=== PATIENT | male | born 1935 | race Caucasian/White ===

== ENCOUNTER 2016-08-30 08:30 | Day surgery (SDC) | payer OTHER ==
--- NOTE | 2016-08-23 08:51 | HP ---
DATE OF ADMISSION: 08/30/2016 DATE OF DICTATION: 06/22/2016 Patient is to be admitted to the [facility] in the near future, date to be determined. HISTORY: This is an 81-year-old man who apparently has had a bilateral laparoscopic inguinal hernia surgery several years ago. He has gone on to develop significant recurrence at the level of the left groin. He presents now for open repair of recurrent left inguinal hernia with mesh. He denies GI, , or respiratory problems to suggest predisposition of hernia formation. Patient denies any significant past medical history, but does take amlodipine/ benazepril 5/10mg and atorvastatin 10mg, which is prescribed by his PMD, Dr. Alonso Goodwin. PAST SURGICAL HISTORY: Nil apart from his bilateral laparoscopic inguinal hernia surgery. ALLERGIES: None known. CURRENT MEDICATIONS: Atorvastatin 10 mg daily, amlodipine/benazepril 5/10mg daily. SOCIAL HISTORY: Negative for tobacco, negative for alcohol. FAMILY HISTORY: Nil. REVIEW OF SYSTEMS: Nil. PHYSICAL EXAMINATION: Patient was examined in the erect and supine position. There was an obvious large left inguinal hernia which is reducible in the supine position. The right groin is intact with no recurrence. The testes are bilaterally atrophic, but with no masses. IMPRESSION: Recurrent left reducible inguinal hernia status post bilateral laparoscopic inguinal hernia repair with mesh several years ago. PLAN: Open repair of recurrent reducible left inguinal hernia with mesh. Indications, alternatives, possible complications were reviewed. Consent obtained. Patient is to be seen preoperatively by Dr. Alonso Goodwin. Please refer to his notes for those medical details. Callie [id number] cc: ALONSO GOODWIN MD [facility]
[2016-08-29 15:53] VITALS: BMI 25.9
[2016-08-30] MEDS ORDERED: TAMSULOSIN HCL 0.4 MG CAP.ER.24H (FP) PO ONE (08:58)
[2016-08-30] MEDS ORDERED: ceFAZolin SODIUM 1 GM VIAL IVPB ONE (10:59)
[2016-08-30] MEDS ORDERED: ONDANSETRON 4 MG/2 ML VIAL IVPUSH PRN (12:29)
[2016-08-30] MEDS ORDERED: oxyCODONE HCL 5 MG TABLET PO PRN (12:29)
[2016-08-30] MEDS ORDERED: LACTATED RINGERS SOLUTION 1,000 ML IV SCH (12:30)
[2016-08-30 13:44] VITALS: TEMP 98.8
[2016-08-30] MEDS ORDERED: oxyCODONE HCL 5 MG TABLET PO ONE (14:50)
[2016-08-30 17:51] VITALS: BP 112/60; PULSE 86
--- NOTE | 2016-08-31 12:05 | OP ---
DATE OF OPERATION: 08/30/2016 PREOPERATIVE DIAGNOSIS: Recurrent left inguinal hernia. POSTOPERATIVE DIAGNOSIS: Recurrent left inguinal hernia. PROCEDURE: Repair of recurrent left inguinal hernia with mesh/intermediate wound closure (8 cm). OPERATING SURGEON: Jaison Juares MD DEVELOPMENT TECHNICIAN: Fernandez Reis MD ANESTHESIA: Rose Hinkle MD (general) HISTORY: This is an 81-year-old man who had undergone a previous bilateral laparoscopic inguinal hernia repair in 2006. He went on to develop recurrence on the left side, which has continued to increase in size. He presents now for repair of recurrent left inguinal hernia with mesh. Indications, alternatives, and possible complications were reviewed. Consent obtained. DESCRIPTION OF PROCEDURE: With the patient in the supine position and after general anesthesia, the left groin was prepped and draped in usual sterile fashion using chlorhexidine. An 8-cm left groin incision was made between the left pubic tubercle and the left anterior iliac spine. Incision was deepened through the skin into the subcutaneous space. The subcutaneous tissues were divided. Vessel sites identified in the subcutaneous space were clamped, divided, and ligated. The external oblique aponeurosis was reached. The external oblique aponeurosis was opened in the direction of its fibers through the external ring. There was significant scarring in the subexternal oblique region secondary to a prior intervention. Ultimately, the cord was swept clean from the level of the undersurface of the external oblique aponeurosis. At the pubic tubercle, Mindi drain was placed around the cord structures. The ilioinguinal nerve was identified amidst the scar tissue from the previous procedure. The cord was then skeletonized of its cremasteric fibers. Exploration of the cord revealed a large indirect component. The indirect component was mobilized to the level of the preperitoneal fat and inferior epigastric vessels. Closer attention identified also a component coming through the transversalis fascia with the hernia then being identified as a rather large pantaloon hernia. The hernia was then entirely reduced, both components were entirely reduced. The transversalis fascia was opened throughout its entire length. The preperitoneal tissues were further reduced. Davol plug was placed in the preperitoneal space and fanned out under the musculature. It was tacked circumferentially with 2-0 Prolene sutures. Ultimately, the attenuated transversalis fascia was imbricated in 2 layers over the Davol plug, reconstituting the internal ring to permit only fingertip entrance. An overlay patch was then fashioned about the entire inguinal floor and tacked circumferentially with 2-0 Prolene sutures. It was keyholed superiorly, where it was wrapped around the cord, buttressing the internal ring. The cord was then returned to its anatomic position. The overlying external oblique aponeurosis was closed in a continuous fashion using 3-0 Vicryl suture material. After irrigation and hemostasis, the wound was closed in layers. Maximo fascia was approximated using interrupted 3-0 chromic suture. Subcuticular layer was approximated with interrupted 4-0 Biosyn. Skins were closed using 4-0 Biosyn in subcuticular stitch in continuous fashion. Prior to complete closure of the wound, 10 mL of 0.5% Marcaine was freely instilled in the wound. NEEDLE AND INSTRUMENT COUNT: Correct. ESTIMATED BLOOD LOSS: Minimal. SPECIMENS: None. DRAINS: None. IMPLANTS: A Bard plug patch. Patient tolerated the procedure. The procedure was terminated. Callie [id number] cc: Alonso Hampton MD MTDD
== END 2016-08-30 16:30 | disposition home or self-care (01) ==
LOC: JASU-SURG 08:30
PROVIDERS: ATTEND Surgery
PROC: 0YU60JZ Supplement Left Inguinal Region with Synthetic Substitute, Open Approach (ICD-10-PCS; principal; 2016-08-30 10:00)
DX: K40.91 Unilateral inguinal hernia, without obstruction or gangrene, recurrent (principal)
CPT/HCPCS: 94760

== ENCOUNTER 2020-06-07 06:59 | Inpatient (IN) | payer OTHER ==
[2020-06-07 07:08] VITALS: BMI 25.1
[2020-06-07] MEDS ORDERED: MECLIZINE HCL 25 MG TABLET (FP) PO STA (07:36)
--- OUTSIDE RECORDS SUMMARY | 2020-06-07 07:40 | XMS ---
:1935 Author Organization [facility] Support Name Relationship Address Phone RE Unavailable Unavailable Unavailable MASOOD MILLER DAUGHTER [address] [place] [address] SHAYY SIMPSON [address] [place] [address] Re-disclosure Warning The records that you are about to access may contain information from federally- assisted alcohol or drug abuse programs. If such information is present, then the following federally mandated warning applies: This information has been disclosed to you from records protected by federal confidentiality rules (42 CFR part 2). The federal rules prohibit you from making any further disclosure of this information unless further disclosure is expressly permitted by the written consent of the person to whom it pertains or as otherwise permitted by 42 CFR part 2. A general authorization for the release of medical or other information is NOT sufficient for this purpose. The Federal rules restrict any use of the information to criminally investigate or prosecute any alcohol or drug abuse patient.The records that you are about to access may contain highly sensitive health information, the redisclosure of which is protected by Article 27-F of the [facility] Public Health law. If you continue you may haveaccess to information: Regarding HIV / AIDS; Provided by facilities licensed or operated by the [facility] Office of Mental Health; or Provided by the [facility] Office for People With Developmental Disabilities. If such information is present, then the following [facility] mandated warning applies: This information has been disclosed to you from confidential records which are protected by state law. State law prohibits you from making any further disclosure of this information without the specific written consent of the person to whom it pertains, or as otherwise permitted by law. Any unauthorized further disclosure in violation of state law may result in a fine or shelter sentence or both. A general authorization for the release of medical or other information is NOT sufficient authorization for further disclosure. Insurance Providers Payer name Policy type Policy ID Covered Covered democrat's Policy P veronica / Coverage democrat ID relationship to [employer] ormation type sawyer LOCAL [id number] - [id number] [facility] [id number] [facility]
[2020-06-07] MEDS ORDERED: MECLIZINE HCL 25 MG TABLET (FP) ONE (07:53)
--- NOTE | 2020-06-07 08:01 | PDOC ---
History of Present Illness - General Chief Complaint: Nausea/Vomiting Stated Complaint: DIZZY, VOMITING Time Seen by Provider: 06/07/20 07:08 - History of Present Illness Initial Comments: Patient speaks Dominican, history obtained from daughter at bedside: 85yo M with PMHx of HTN, HLD, angioplasty of the heart, R corneal transplant who presents with new-onset dizziness and vomiting. Symptoms started this morning at around 5am when the patient woke up from dreaming about his . Symptoms get worse with movement and resolve with rest. Due to the severity, the patient's called the daughter and brought him into the ED. Patient has never had these symptoms before, and is a relatively healthy person at baseline - still drives and walks everyday. Patient is not experiencing any associated symptoms but has a mild tremor which is not normal for him. NIHSS 0. VS when patient was seen: BP 121/65, P 83, O2 sat 98% breathing comfortably on RA. Home meds: - Furosemide 20 daily - Atorvastatin 10 daily - Amlodipine-Benazepril 5-10 daily - ASA [address] Hampton NIH Stroke Scale - Last Known Well Date/Time & Onset Date Last Known Well: 06/06/20 - Initial Evaluation Level of consciousness: Alert Ask patient the month and their age: Answers both correctly Ask patient to open & close eyes; make fist and let go: Obeys both correctly Best gaze (horizontal eye movement): Normal Visual field testing: No visual field loss Facial paresis (Show teeth/raise eyebrows/close eyes tight): Normal symmetrical movement Motor Function: Left Arm: Normal Motor Function: Right Arm: Normal (extends arm 90 (or 45) degrees for 10 seconds without drift Motor Function: Left Leg: Normal (extends leg 30 degrees for 5 seconds without drift) Motor Function: Right Leg: Normal (extends leg 30 degrees for 5 seconds without drift) Limb Ataxia: No ataxia Sensory(Use pinprick test arms,legs,trunk,face/side to side): Normal Best language (Describe picture, name items, read sentences): No Aphasia Dysarthria (read several words): Normal articulation Extinction and Inattention: No abnormality - Total Score NIH Stroke Scale Score: 0 Past History - Medical History Allergies/Adverse Reactions: Allergies Allergy/AdvReac Type Severity Reaction Status Date / Time No Known Drug Allergies Allergy Verified 06/07/20 07:08 Home Medications: Ambulatory Orders Ascorbate Calcium [Vitamin C] 500 mg PO DAILY 08/29/16 Aspirin [Aspirin EC] 81 mg PO DAILY 08/29/16 Atorvastatin Ca [Lipitor] 10 mg PO DAILY 08/29/16 Amlodipine Besylate/Benazepril [Amlodipine-Benazepril 5-10 mg] 1 tab PO DAILY 06/07/20 Furosemide [Lasix] 20 mg PO DAILY 06/07/20 Anemia: No Asthma: No Cancer: No Cardiac Disorders: Yes (ASHD) CVA: No COPD: No CHF: No Dementia: No Diabetes: No GI Disorders: No Disorders: No HTN: Yes Hypercholesterolemia: Yes Liver Disease: No Seizures: No Thyroid Disease: No - Surgical History Abdominal Surgery: Yes (BILAT LAP INGUINAL HERNIA REPAIR) Cardiac Surgery: Yes - Psycho-Social/Smoking History Smoking History: Never smoked Information on smoking cessation initiated: No - Substance Abuse Hx (Audit-C & DAST Scrn) How often the patient has a drink containing alcohol: Monthly or less Score: In Men: 4 or > Positive; In Women: 3 or > Positive: 1 Screen Result (Pos requires Nsg. Audit-10AR): Negative In the last yr the pt used illegal drug/Rx for NonMed reason: No Score: Yes response is considered Positive: 0 Screen Result (Positive result requires Nsg. DAST-10): Negative Review of Systems - Review of Systems Comments:: Constitutional: denied fevers, chills, diaphoresis, changes in appetite/PO intake, weight gain/loss HEENTM: denied headaches, changes in vision/hearing/tasting/smelling, runny nose, sore throat Respiratory: denied SOB, CP Cardiac: endorsed dizziness, denied palpitations, syncope Abdomen/GI: endorsed vomiting, denied pain, diarrhea, constipation : denied dysuria, urinary frequency/urgency MSK: denied back pain, joint pain/swelling/stiffness Neurological: endorsed dizziness, denied numbness, tingling, weakness *Physical Exam - Vital Signs Last Vital Signs Temp Pulse Resp BP Pulse Ox 97.6 F 84 20 154/71 96 06/07/20 07:02 06/07/20 07:02 06/07/20 07:02 06/07/20 07:02 06/07/20 07:08 - Physical Exam GENERAL: Dominican male, appears younger than stated age, thin body habitus, AAOx4 showing signs of acute distressdue to vomiting HEAD: Normal with no signs of trauma, good dentitionfor age EYES: pupils round but unequal (R eye corneal transplant), extraocular movements intact bilaterally EARS, NOSE, THROAT: dry mucous membranes NECK: No lymphadenopathy, JVD masses noted LUNGS: CTAB. No wheezes, and no crackles. No accessory muscle use HEART: RRR, normal S1 and S2 without murmur ABDOMEN: Soft, nontender, not distended/protuberant, normoactive bowel sounds EXTREMITIES: 2+ radial and dorsalis pedis pulses, warm to touch bilaterally, nontender to palpation, no peripheral edema appreciated, no active lesions or ulcers noted on feet bilaterally including interdigital web spaces NEUROLOGICAL: Cranial nerves II-XII grossly intact. Normal speech with symmetricalfacial movements. Sensation intact bilaterally PSYCHIATRIC: Cooperative and interactive, responds appropriately. Limited eye contact. Appropriate affect SKIN: Warm, no rashes or lesions noted, large seborrheic keratosis on back ED Treatment Course - LABORATORY CBC & Chemistry Diagram: 06/07/20 07:34 06/07/20 07:34 - RADIOLOGY Radiology Studies Ordered: Category Date Time Status HEAD CT (STROKE) [CT] Stat CT Scan 06/07/20 07:35 Taken Medical Decision Making - Medical Decision Making 85yo M with PMHx of HTN, HLD, angioplasty of the heart, R corneal transplant who presents with new-onset dizziness and vomiting. - CBC - CMP - EKG - meclizine - ativan - heat CT - neuro consult > heat CT unremarkable - awaiting brain MRI > will admit for intractable vertigo and ruling out CVA > spoke to Dr. Marmolejo 9:30am - did not recommend any further management at this time > Dr. Wells spoke to Dr. Hampton to inform him about his patient's admission Discharge - Discharge Information Problems reviewed: Yes Clinical Impression/Diagnosis: Vertigo Condition: Fair - Admission Yes - Follow up/Referral - Patient Discharge Instructions - Post Discharge Activity
[2020-06-07 08:04] LABS: BASO % 0.5 % (0-2.0); EOS % 0.2 % (0-4.5); HEMATOCRIT 41.1 % (35.4-49); HEMOGLOBIN 13.5 GM/dL (11.7-16.9); LYMPH % 16.6 % (8-40); MCH 31.8 pg (25.7-33.7); MCHC 32.9 g/dl (32.0-35.9); MEAN CELL VOLUME 96.6 fl (80-96); MEAN PLT VOLUME 12.5 fl (7.5-11.1); MONO % 1.9 % (3.8-10.2); NEUT % 80.8 % (42.8-82.8); PLATELET COUNT 125 K/MM3 (134-434); RBC 4.25 M/mm3 (4.00-5.60); RDW 12.8 % (11.9-15.9); WHITE BLOOD COUNT 5.9 K/mm3 (4.0-10.0)
[2020-06-07 08:13] LABS: CHLORIDE 104 mmol/L (98-107); POTASSIUM 4.5 mmol/L (3.5-5.1); SODIUM 138 mmol/L (136-145)
[2020-06-07 08:15] LABS: ALBUMIN 3.9 g/dl (3.4-5.0); CALCIUM 9.4 mg/dL (8.5-10.1)
[2020-06-07 08:16] LABS: ANION GAP 5 MMOL/L (8-16); BLOOD UREA NITROGEN 16.7 mg/dL (7-18); CO2 28 mmol/L (21-32); GLUCOSE,RANDOM 144 mg/dL (74-106)
[2020-06-07 08:19] LABS: CREATININE 0.8 mg/dL (0.55-1.3); SGOT/AST 20 U/L (15-37); SGPT/ALT 21 U/L (13-61)
[2020-06-07 08:20] LABS: BILIRUBIN,TOTAL 0.6 mg/dL (0.2-1); TOT PROT 7.6 g/dl (6.4-8.2)
[2020-06-07 08:22] LABS: ALK PHOS 61 U/L (45-117)
[2020-06-07] MEDS ORDERED: LORazepam 2 MG/ML SDV VIAL ONE (08:23)
--- NOTE | 2020-06-07 08:39 | PDOC ---
Attending Attestation - Resident Resident Name: Thelma Brown - ED Attending Attestation I have performed the following: I have examined & evaluated the patient, The case was reviewed & discussed with the resident, I agree w/resident's findings & plan, Exceptions are as noted - HPI HPI: 06/07/20 08:30 85 years old CAD, hypertension, high cholesterol on Plavix presents to the ED with vertigo upon waking up this morning. Last seen normal last night. Upon awakening with change in position severe vertigo associated with nausea vomiting unable to sit up very symptomatic denies chest pain shortness of breath - Physicial Exam PE: 06/07/20 08:31 Vitals: Triage Vital signs reviewed General Appearance: No acute distress, well nourished well developed, Head: Atraumatic, Eyes: Pupils equal reactive round, extraocular movement intact Cardiac: Regular rate and rhythym, no murmurs, no rubs, no gallops, Lungs: Clear to auscultation bilateral, good air movement bilaterally, Abdomen: Soft, non distended, normal bowel sounds, non tender to palpation Extremities: Full range of motion to all extremities, no cyanosis, clubbing, or edema Skin: Warm and dry, no rashes or lesions, no rash, no petechiae Neuro: AOX3; cranial Nerves 2-12 grossly intact, strength intact to all extremities, sensation intact to all extremities, Severe vertigo with mild change in head position, Normal [id number] Psych: Normal mood, normal affect - Medical Decision Making 06/11/20 16:48 Severe vertigo intractable head CT negative Despite IV medications patient still unable to change position without moderate to severe room spinning We will admit to medicine for neurology consultation medication IV hydration MRI and further management. Heart Score/ECG Review - ECG Impressions Comment:: 06/07/20 08:38 EKG performed at 744 demonstrates normal sinus rhythm left anterior fascicular block No ST elevations or T wave inversions Interpreted by me. Discharge - Discharge Information Problems reviewed: Yes Clinical Impression/Diagnosis: Vertigo Condition: Stable Disposition: HOME - Follow up/Referral - Patient Discharge Instructions - Post Discharge Activity
[2020-06-07 09:04] LABS: URINE APPEARANCE TURBID; URINE BILIRUBIN NEGATIVE (NEGATIVE); URINE COLOR YELLOW; URINE GLUCOSE (UA) NEGATIVE (NEGATIVE); URINE KETONE NEGATIVE (NEGATIVE); URINE LEUK ESTERASE NEGATIVE (NEGATIVE); URINE NITRITE NEGATIVE (NEGATIVE); URINE PROTEIN NEGATIVE (NEGATIVE)
[2020-06-07] MEDS ORDERED: ASPIRIN COATED 81 MG TABLET.EC ONE (11:01)
[2020-06-07] MEDS ORDERED: ATORVASTATIN CA 10 MG TABLET (FP) ONE (11:01)
[2020-06-07 11:02] LABS: CHOLESTEROL 139 mg/dL (50-200)
[2020-06-07 11:04] LABS: LDL CHOLESTEROL (ONLY SJRH) 75 mg/dL (5-100); TRIGLYCERIDES 37 mg/dL (0-150)
[2020-06-07 11:05] LABS: HDL CHOLESTEROL 58 mg/dL (40-60)
[2020-06-07] MEDS: ATORVASTATIN CA 10 MG TABLET (FP) PO SCH (11:09)
[2020-06-07] MEDS: ASPIRIN COATED 81 MG TABLET.EC PO SCH (11:09)
--- NOTE | 2020-06-07 11:13 | HP ---
CHIEF COMPLAINT: dizziness PCP: Dr. Hampton HISTORY OF PRESENT ILLNESS: Patient is an 85 year old male with past medical history of HTN, HLD, CAD, was brought in by EMS due to dizziness accompanied by nausea and vomiting for 1 day. Patient is Greek-speaking, daughter at bedside to aide with the history. She reported that patient was having a dream around 1am today when he suddenly woke up with dizziness. His called his daughter to let her know, but patient was able to go back to sleep. At around 5am, patient woke up dizzy, describing as room spinning around him, and as soon as he stood up, started having nausea and vomiting. Patient was able to get back to bed, and his called the daughter again and EMS was called. Upon arrival at the ED, patient still reported dizziness, worse with changes in position, improved with rest. He received Ativan and Meclizine and reported some mild relief. Denies any recent illness or sick contacts. Denies any hearing loss or tinnitus, denies weakness, numbness or tingling. Denies fevers, chills, headache, chest pain, palpitations, shortness of breath, abdominal, diarrhea, urinary symptoms. ER course was notable for: (1)Head CT - moderate atrophy without gross evidence of an acute infarct. (2) (3) Recent Travel: denies PAST MEDICAL HISTORY: HTN HLD CAD s/p cath, although no reported history of cardiac stents (follows up with Dr. Hardy) PAST SURGICAL HISTORY: PCI Right corneal transplant Hernia repair Social History: Smoking:denies Alcohol:1 glass of wine a day Drugs: denies Lives with at home Allergies No Known Drug Allergies Allergy (Verified 06/07/20 07:08) HOME MEDICATIONS: Home Medications Medication Instructions Recorded Ascorbate Calcium [Vitamin C] 500 mg PO DAILY 08/29/16 Aspirin [Aspirin EC] 81 mg PO DAILY 08/29/16 Atorvastatin Ca [Lipitor] 10 mg PO DAILY 08/29/16 Amlodipine Besylate/Benazepril 1 tab PO DAILY 06/07/20 [Amlodipine-Benazepril 5-10 mg] Furosemide [Lasix] 20 mg PO DAILY 06/07/20 REVIEW OF SYSTEMS CONSTITUTIONAL: Absent: fever, chills, diaphoresis, generalized weakness, malaise, loss of appetite, weight change HEENT: Absent: rhinorrhea, nasal congestion, throat pain, throat swelling, difficulty swallowing, mouth swelling, ear pain, eye pain, visual changes CARDIOVASCULAR: Absent: chest pain, syncope, palpitations, irregular heart rate, lightheadedness, peripheral edema RESPIRATORY: Absent: cough, shortness of breath, dyspnea with exertion, orthopnea, wheezing, stridor, hemoptysis GASTROINTESTINAL:nausea, vomiting Absent: abdominal pain, abdominal distension, diarrhea, constipation, melena, hematochezia GENITOURINARY: Absent: dysuria, frequency, urgency, hesitancy, hematuria, flank pain, genital pain MUSCULOSKELETAL: Absent: myalgia, arthralgia, joint swelling, back pain, neck pain SKIN: Absent: rash, itching, pallor HEMATOLOGIC/IMMUNOLOGIC: Absent: easy bleeding, easy bruising, lymphadenopathy, frequent infections ENDOCRINE: Absent: unexplained weight gain, unexplained weight loss, heat intolerance, cold intolerance NEUROLOGIC: dizziness Absent: headache, focal weakness or paresthesias,unsteady gait, seizure, mental status changes, bladder or bowel incontinence PSYCHIATRIC: Absent: anxiety, depression, suicidal or homicidal ideation, hallucinations. PHYSICAL EXAMINATION Vital Signs - 24 hr 06/07/20 06/07/20 07:02 07:08 Temperature 97.6 F Pulse Rate 84 Respiratory 20 Rate Blood Pressure 154/71 O2 Sat by Pulse 95 96 Oximetry (%) Orthostatics: lying down BP 127/61 HR 72, sitting BP 126/65 HR 75 GENERAL: Awake, alert, and fully oriented, in no acute distress. HEAD: Normal with no signs of trauma. EYES: PERRLA, EOMI, sclera anicteric, conjunctiva clear. EARS, NOSE, THROAT: Moist mucous membranes. NECK: Normal range of motion, supple LUNGS: Breath sounds equal, clear to auscultation bilaterally. HEART: Regular rate and rhythm, normal S1 and S2 without murmur ABDOMEN: Soft, nontender, not distended, normoactive bowel sounds MUSCULOSKELETAL: Normal range of motion at all joints. LOWER EXTREMITIES: 2+ pulses, warm, well-perfused. No peripheral edema. NEUROLOGICAL: Cranial nerves II-XII grossly intact. Normal speech. Motor strength 5/5, sensation intact. No dysmetria. Unable to test gait as patient feels very dizzy when standing up PSYCHIATRIC: Cooperative. Good eye contact. Appropriate mood and affect. SKIN: Warm, dry, normal turgor, no rashes or lesions noted, normal capillary refill. Laboratory Results - last 24 hr 06/07/20 06/07/20 06/07/20 07:34 07:34 08:37 WBC 5.9 RBC 4.25 Hgb 13.5 Hct 41.1 MCV 96.6 H MCH 31.8 MCHC 32.9 RDW 12.8 Plt Count 125 L MPV 12.5 H Absolute Neuts (auto) 4.8 Neutrophils % 80.8 Lymphocytes % 16.6 Monocytes % 1.9 L Eosinophils % 0.2 Basophils % 0.5 Nucleated RBC % 0 Sodium 138 Potassium 4.5 Chloride 104 Carbon Dioxide 28 Anion Gap 5 L BUN 16.7 Creatinine 0.8 Est GFR (CKD-EPI)AfAm 95.07 Est GFR (CKD-EPI)NonAf 82.03 Random Glucose 144 H Calcium 9.4 Total Bilirubin 0.6 AST 20 ALT 21 Alkaline Phosphatase 61 Troponin I < 0.02 Total Protein 7.6 Albumin 3.9 Urine Color Yellow Urine Appearance Turbid Urine pH 8.0 Ur Specific [place] 1.014 Urine Protein Negative Urine Glucose (UA) Negative Urine Ketones Negative Urine Blood Negative Urine Nitrite Negative Urine Bilirubin Negative Urine Urobilinogen 1.0 Ur Leukocyte Esterase Negative ASSESSMENT/PLAN: Patient is an 85 year old male with past medical history of HTN, HLD, CAD, was brought in by EMS due to dizziness accompanied by nausea and vomiting for 1 day. #Dizziness likely 2/2 BPPV -r/o TIA/CVA, although unlikely as patient has no other symptoms, and symptoms improved with Meclizine -Orthostatics negative -Head CT - no acute intracranial pathology -continue Meclizine prn -continue ASA and statin -Brain MRI ordered -Echo and carotid doppler -tele monitoring -physical therapy -Neuro (Dr. Marmolejo) consulted. Recs appreciated. #HTN -BP stable, will continue to monitor -hold bp meds for now for permissive HTN #HLD -continue Lipitor #FEN -Not on any standing fluids -Electrolytes wnl, routine bmp monitoring -Clear liquid diet, advance as tolerated #Prophylaxis -Lovenox 40mg sq daily #Disposition -full code -admit to tele Family Medical History Family History: As Documented Visit type - Medication Review Med list reviewed for High Risk Meds patients 65 and older: Yes - Emergency Visit Emergency Visit: Yes ED Registration Date: 06/07/20 Care time: The patient presented to the Emergency Department on the above date and was hospitalized for further evaluation of their emergent condition. - New Patient This patient is new to me today: Yes Date on this admission: 06/08/20 - Critical Care Critical Care patient: No ATTENDING PHYSICIAN STATEMENT I saw and evaluated the patient. I reviewed the resident's note and discussed the case with the resident. I agree with the resident's findings and plan as documented. SUBJECTIVE: OBJECTIVE: ASSESSMENT AND PLAN:
--- OUTSIDE RECORDS SUMMARY | 2020-06-07 11:39 | XMS ---
:1935 Author Organization [facility] Support Name Relationship Address Phone RE, RETIRED Unavailable Unavailable Unavailable RE Unavailable Unavailable Unavailable MASOOD MILLER DAUGHTER [address] [place] [address] SHAYY SIMPSON [address] [place] [address] Re-disclosure Warning The records that you are [...] is protected by Article 27-F of the [facility] Public Health law. If you continue you may haveaccess to information: Regarding HIV / AIDS; Provided by facilities licensed or operated by the [facility] Office of Mental Health; or Provided by the [facility] Office for People With Developmental Disabilities. If such information is present, then the following [facility] mandated warning applies: This information has [...] law may result in a fine or custodial sentence or both. A general authorization for the release of medical or other information is NOT sufficient authorization for further disclosure. Insurance Providers Payer name Policy type Policy ID Covered Covered democrat's Policy P veronica / Coverage democrat ID relationship to Sawyer Inf ormation type sawyer AETNA MEDICARE [id number] MEBRL [id number] [facility] [id number] [facility] [id number] [facility]
[2020-06-07] MEDS ORDERED: MECLIZINE HCL 25 MG TABLET (FP) PO PRN (11:45)
--- NOTE | 2020-06-07 13:14 | PN ---
Teaching Attending Note Name of Resident: Chrissie Farnsworth ATTENDING PHYSICIAN STATEMENT I saw and evaluated the patient. I reviewed the resident's note and discussed the case with the resident. I agree with the resident's findings and plan as documented. SUBJECTIVE: Patient seen and examined at bedside, admitted to r/o CVA for dizziness, improved w/ Meclizine x1 dose, awaiting MRI brain. VSS. OBJECTIVE: GA comfortable, NAD HEENT NC/AT, EOMI, neck supple, no focal deficits Chest CTAB CVS S1, S2+< RRR Abd Soft, NT, ND, BS+ Ext no LE edema, movezs all 4 ext. Neuro Cn 2-12 grossly intact, [place] hallpike maneuver exacerbates dizziness w/ minimal torsional nystagmus Microbiology 06/07/20 08:37 Urine - Urine Clean Catch Urine Culture - Final Lactose Fermenting Neg Bacilli Vital Signs (72 hours) 06/07/20 06/07/20 06/07/20 07:02 07:08 12:00 Temperature 97.6 F 98.1 F Pulse Rate 84 Pulse Rate [ 70 Left Radial] Respiratory 20 16 Rate Blood Pressure 154/71 Blood Pressure 126/65 [Left Arm] O2 Sat by Pulse 95 96 96 Oximetry (%) 06/07/20 06/07/20 06/07/20 16:00 17:54 19:30 Temperature 98.2 F 100.2 F H Pulse Rate 75 Pulse Rate [ 94 H 78 Left Radial] Respiratory 16 16 18 Rate Blood Pressure 130/72 Blood Pressure 130/67 122/64 [Left Arm] O2 Sat by Pulse 94 L 94 L 96 Oximetry (%) 06/07/20 06/07/20 06/08/20 22:36 23:00 05:22 Temperature 98.9 F 98.0 F 98 F Pulse Rate 77 64 Pulse Rate [ 87 Left Radial] Respiratory 20 18 18 Rate Blood Pressure 136/75 137/71 Blood Pressure 140/77 [Left Arm] O2 Sat by Pulse 98 95 Oximetry (%) 06/08/20 07:00 Temperature Pulse Rate Pulse Rate [ Left Radial] Respiratory Rate Blood Pressure Blood Pressure [Left Arm] O2 Sat by Pulse 95 Oximetry (%) Laboratory Results - last 24 hr 06/07/20 06/08/20 06/08/20 11:10 06:10 06:10 WBC RBC Hgb Hct MCV MCH MCHC RDW Plt Count MPV Absolute Neuts (auto) Neutrophils % Lymphocytes % Monocytes % Eosinophils % Basophils % Nucleated RBC % ESR 8 Sodium 138 Potassium 3.9 Chloride 104 Carbon Dioxide 29 Anion Gap 5 L BUN 14.8 Creatinine 0.7 Est GFR (CKD-EPI)AfAm 100.44 Est GFR (CKD-EPI)NonAf 86.66 Random Glucose 94 Hemoglobin A1c % Calcium 8.9 Phosphorus 3.8 Magnesium 2.1 Total Bilirubin 0.7 AST 15 ALT 18 Alkaline Phosphatase 56 C-Reactive Protein < 0.3 Total Protein 6.6 Albumin 3.3 L Vitamin B12 1439 H TSH 1.23 COVID-19 (LASHAY) Not detected 06/08/20 06/08/20 06:10 06:10 WBC 7.2 RBC 3.98 L Hgb 12.8 Hct 38.4 MCV 96.4 H MCH 32.1 MCHC 33.3 RDW 13.4 Plt Count 120 L MPV 12.0 H Absolute Neuts (auto) 4.9 Neutrophils % 68.2 Lymphocytes % 25.0 D Monocytes % 5.2 D Eosinophils % 0.9 D Basophils % 0.7 Nucleated RBC % 0 ESR Sodium Potassium Chloride Carbon Dioxide Anion Gap BUN Creatinine Est GFR (CKD-EPI)AfAm Est GFR (CKD-EPI)NonAf Random Glucose Hemoglobin A1c % 4.8 Calcium Phosphorus Magnesium Total Bilirubin AST ALT Alkaline Phosphatase C-Reactive Protein Total Protein Albumin Vitamin B12 TSH COVID-19 (LASHAY) Home Medications Medication Instructions Recorded Ascorbate Calcium [Vitamin C] 500 mg PO DAILY 08/29/16 Aspirin [Aspirin EC] 81 mg PO DAILY 08/29/16 Atorvastatin Ca [Lipitor] 10 mg PO DAILY 08/29/16 Amlodipine Besylate/Benazepril 1 tab PO DAILY 06/07/20 [Amlodipine-Benazepril 5-10 mg] Furosemide [Lasix] 20 mg PO DAILY 06/07/20 Meclizine HCl [Antivert -] 25 mg PO TID PRN #30 tablet 06/08/20 Current Medications Generic Name Dose Route Start Last Admin Trade Name Freq PRN Reason Stop Dose Admin Ascorbic Acid 500 mg 06/08/20 10:00 06/08/20 09:18 Vitamin C - PO 500 mg DAILY RICHARD Administration Aspirin 81 mg 06/07/20 10:00 06/08/20 09:18 Ecotrin - PO 81 mg DAILY RICHARD Administration Atorvastatin Calcium 10 mg 06/07/20 10:30 06/08/20 09:18 Lipitor - PO 10 mg DAILY RICHARD Administration Enoxaparin Sodium 40 mg 06/08/20 10:00 06/08/20 09:19 Lovenox - SQ 40 mg DAILY RICHARD Administration Meclizine HCl 25 mg 06/07/20 11:45 06/08/20 09:18 Antivert - PO 25 mg TID PRN Administration VERTIGO ASSESSMENT AND PLAN: 85 M BPPV r/o cerebellar CVA HTn HLD HFpEF Plan: Cont. Meclizine q4-6H PRN for dizziness Echo/Carotids/Brain MRI A1c/lipids/TSH Low salt diet, Andrea ness if possible PT evaluation for gait/transfer DVT ppx: Lovenox SC
--- NOTE | 2020-06-07 13:58 | ECHO ---
Name: SHAD SIMPSON Exam:Adult Echocardiogram Study Date: 06/07/2020 11:37 AM Age: 85 yrs Reason For Study: LV Function Height: 69 in Weight: 170 lb BSA: 1.9 m2 MMode/2D Measurements & Calculations IVSd: 1.1 cm Ao root diam: 3.1 cm LVIDd: 5.1 cm LA dimension: 3.3 cm LVIDs: 3.3 cm LVPWd: 1.0 cm EDV(Teich): 121.1 ml LVOT diam: 2.0 cm ESV(Teich): 42.8 ml LAV (MOD-bp): 63.5 ml Doppler Measurements & Calculations MV E max austyn: 63.0 cm/sec Ao V2 max: 240.0 cm/sec MV A max austyn: 107.7 cm/sec Ao max P.1 mmHg MV E/A: 0.58 Ao V2 mean: 152.8 cm/sec MV dec time: 0.16 sec Ao mean P.1 mmHg Ao V2 VTI: 46.8 cm SPARKLE(I,D): 2.1 cm2 AI P1/2t: 480.7 msec SPARKLE(V,D): 1.8 cm2 AI max uastyn: 449.0 cm/sec LV V1 max P.3 mmHg AI max P.6 mmHg LV V1 mean P.9 mmHg AI dec slope: 273.5 cm/sec2 LV V1 max: 134.7 cm/sec LV V1 mean: 105.0 cm/sec LV V1 VTI: 30.0 cm SV(LVOT): 97.4 ml TR max austyn: 233.9 cm/sec TR max P.9 mmHg PA V2 max: 120.3 cm/sec Med Peak E' Austyn: 5.4 cm/sec PA max P.8 mmHg Med E/e': 11.6 Lat Peak E' Austyn: 7.4 cm/sec Lat E/e': 8.5 PI Vmax: 137.0 cm/sec Procedure A complete two-dimensional transthoracic echocardiogram was performed (2D, M-mode, Doppler and color flow Doppler). Left Ventricle The left ventricle is normal in size. Left ventricular systolic function is normal. Ejection Fraction = 60- 65%. Grade I diastolic dysfunction, (abnormal relaxation pattern). Ratio E/E'= 12. No regional wall m otion abnormalities noted. Right Ventricle The right ventricle is normal size. The right ventricular systolic function is normal. Atria The left atrial size is normal. Right atrial size is normal. Mitral Valve There is mild mitral annular calcification. There is no mitral regurgitation noted. Tricuspid Valve The tricuspid valve is normal in structure and function. There is mild tricuspid regurgitation. Aortic Valve There is mild aortic sclerosis.;. No aortic regurgitation is present. Pulmonic Valve The pulmonic valve is not well visualized. Great Vessels The aortic root is normal size. Pericardium/Pleura There is no pericardial effusion. Interpretation Summary The left ventricle is normal in size. Left ventricular systolic function is normal. No regional wall motion abnormalities noted. Ejection Fraction = 60-65%. Grade I diastolic dysfunction, (abnormal relaxation pattern). Ratio E/E'= 12 There is mild mitral annular calcification. There is mild tricuspid regurgitation. There is mild aortic sclerosis. There is no pericardial effusion. Cm Waggoner MD 06/07/2020 01:57 PM
--- NOTE | 2020-06-07 15:17 | EKG ---
Test Reason : Blood Pressure : / mmHG Vent. Rate : 072 BPM Atrial Rate : 072 BPM P-R Int : 186 ms QRS Dur : 116 ms QT Int : 428 ms P-R-T Axes : 083 -51 075 degrees QTc Int : 468 ms NORMAL SINUS RHYTHM LEFT ANTERIOR FASCICULAR BLOCK LEFT VENTRICULAR HYPERTROPHY WITH QRS WIDENING NONSPECIFIC ST ABNORMALITY ABNORMAL ECG WHEN COMPARED WITH ECG OF 19-AUG-2016 10:29, VENT. RATE HAS INCREASED Confirmed by ÁNGEL COTA MD ([id number]) on 06/07/2020 3:16:27 PM Referred By: Confirmed By:ÁNGEL COTA MD
[2020-06-07] MEDS ORDERED: ACETAMINOPHEN 325 MG TABLET (FP) PO ONE (20:40)
[2020-06-07] MEDS ORDERED: ACETAMINOPHEN 325 MG TABLET (FP) ONE (21:01)
[2020-06-08 07:24] LABS: CHLORIDE 104 mmol/L (98-107); POTASSIUM 3.9 mmol/L (3.5-5.1); SODIUM 138 mmol/L (136-145)
[2020-06-08 07:28] LABS: BLOOD UREA NITROGEN 14.8 mg/dL (7-18); GLUCOSE,RANDOM 94 mg/dL (74-106)
[2020-06-08 07:29] LABS: ALBUMIN 3.3 g/dl (3.4-5.0); CALCIUM 8.9 mg/dL (8.5-10.1)
[2020-06-08 07:31] LABS: ANION GAP 5 MMOL/L (8-16); CO2 29 mmol/L (21-32); MAGNESIUM 2.1 mg/dL (1.8-2.4); PHOSPHOROUS 3.8 mg/dL (2.5-4.9); SGOT/AST 15 U/L (15-37); SGPT/ALT 18 U/L (13-61)
[2020-06-08 07:32] LABS: TOT PROT 6.6 g/dl (6.4-8.2)
[2020-06-08 07:34] LABS: ALK PHOS 56 U/L (45-117); CREATININE 0.7 mg/dL (0.55-1.3)
[2020-06-08 07:36] LABS: BILIRUBIN,TOTAL 0.7 mg/dL (0.2-1)
--- NOTE | 2020-06-08 08:42 | PN ---
Teaching Attending Note Name of Resident: Bridgette Barajas ATTENDING PHYSICIAN STATEMENT I saw and evaluated the patient. I reviewed the resident's note and discussed the case with the resident. I agree with the resident's findings and plan as documented. SUBJECTIVE: Patient is c/o having difficulty standing up , as soon as he stands up feels dizzy. OBJECTIVE: Vital Signs Temperature 98 F 06/08/20 05:22 Pulse Rate 64 06/08/20 05:22 Respiratory Rate 18 06/08/20 05:22 Blood Pressure 137/71 06/08/20 05:22 O2 Sat by Pulse Oximetry (%) 95 06/08/20 07:00 PE: per resident's note CBCD WBC 5.9 K/mm3 (4.0-10.0) 06/07/20 07:34 RBC 4.25 M/mm3 (4.00-5.60) 06/07/20 07:34 Hgb 13.5 GM/dL (11.7-16.9) 06/07/20 07:34 Hct 41.1 % (35.4-49) 06/07/20 07:34 MCV 96.6 fl (80-96) H 06/07/20 07:34 MCHC 32.9 g/dl (32.0-35.9) 06/07/20 07:34 RDW 12.8 % (11.9-15.9) 06/07/20 07:34 Plt Count 125 K/MM3 (134-434) L 06/07/20 07:34 MPV 12.5 fl (7.5-11.1) H 06/07/20 07:34 CMP Sodium 138 mmol/L (136-145) 06/08/20 06:10 Potassium 3.9 mmol/L (3.5-5.1) 06/08/20 06:10 Chloride 104 mmol/L (98-107) 06/08/20 06:10 Carbon Dioxide 29 mmol/L (21-32) 06/08/20 06:10 Anion Gap 5 MMOL/L (8-16) L 06/08/20 06:10 BUN 14.8 mg/dL (7-18) 06/08/20 06:10 Creatinine 0.7 mg/dL (0.55-1.3) 06/08/20 06:10 Random Glucose 94 mg/dL (74-106) 06/08/20 06:10 Calcium 8.9 mg/dL (8.5-10.1) 06/08/20 06:10 Total Bilirubin 0.7 mg/dL (0.2-1) 06/08/20 06:10 AST 15 U/L (15-37) 06/08/20 06:10 ALT 18 U/L (13-61) 06/08/20 06:10 Alkaline Phosphatase 56 U/L (45-117) 06/08/20 06:10 Total Protein 6.6 g/dl (6.4-8.2) 06/08/20 06:10 Albumin 3.3 g/dl (3.4-5.0) L 06/08/20 06:10 CARDIAC ENZYMES Troponin I < 0.02 ng/ml (0.00-0.05) 06/07/20 07:34 Current Medications Generic Name Dose Route Start Last Admin Trade Name Freq PRN Reason Stop Dose Admin Ascorbic Acid 500 mg 06/08/20 10:00 Vitamin C - PO DAILY [facility] Aspirin 81 mg 06/07/20 10:00 06/07/20 11:09 Ecotrin - PO 81 mg DAILY [facility] Administration Atorvastatin Calcium 10 mg 06/07/20 10:30 06/07/20 11:09 Lipitor - PO 10 mg DAILY RICHARD Administration Enoxaparin Sodium 40 mg 06/08/20 10:00 Lovenox - SQ DAILY [facility] Meclizine HCl 25 mg 06/07/20 11:45 Antivert - PO TID PRN VERTIGO Home Medications Medication Instructions Recorded Ascorbate Calcium [Vitamin C] 500 mg PO DAILY 08/29/16 Aspirin [Aspirin EC] 81 mg PO DAILY 08/29/16 Atorvastatin Ca [Lipitor] 10 mg PO DAILY 08/29/16 Amlodipine Besylate/Benazepril 1 tab PO DAILY 06/07/20 [Amlodipine-Benazepril 5-10 mg] Furosemide [Lasix] 20 mg PO DAILY 06/07/20 Brain MRI: no evidence of acute infarct, small areas of gliosis in the white matter of both hemispheres sequela to HTN or small vessel arteriosclerosis. No evidence of intracerebral hemorrhage, or hydrocephalus. Brain MRA: No evidence of aneurysm or intracranial AV malformation. Minimal atheromatous changes cavernous portion internal carotid arteries, basilar artery and in the middle cerebral arteries branches with no evidence of severe stenosis, dissection or occlusion. Carotid duplex: mild intimal thickening at the common carotid bifurcation ,bl and small plaques in the left bulb and proximal internal carotid artery without evidence of hemodynamically significant stenosis. ASSESSMENT AND PLAN: Patient is an 85yom with PMHx of HTN, HLD, CAD, was brought in by EMS due to dizziness accompanied by nausea and vomiting for one day. #Acute Dizziness R/o ACS: possible due to dehydration , will give him a liter of IVF , will hold his diuretic now. MRA/MRI of the brain as above. continue meclizine, as an scheduled dose. orthostatics continue ASA and statin, echo and carotid doppler. physical therapy, neuro was consulted, r/o ACS #HTN controlled while lying in bed, but feels dizzy on standing up , orthostatics per shift #HLD: continue Lipitor DVT Px: Lovenox 40mg sq daily full code
[2020-06-08 08:57] LABS: BASO % 0.7 % (0-2.0); EOS % 0.9 % (0-4.5); HEMATOCRIT 38.4 % (35.4-49); HEMOGLOBIN 12.8 GM/dL (11.7-16.9); MCH 32.1 pg (25.7-33.7); MCHC 33.3 g/dl (32.0-35.9); MEAN CELL VOLUME 96.4 fl (80-96); MONO % 5.2 % (3.8-10.2); NEUT % 68.2 % (42.8-82.8); PLATELET COUNT 120 K/MM3 (134-434); RBC 3.98 M/mm3 (4.00-5.60); RDW 13.4 % (11.9-15.9); WHITE BLOOD COUNT 7.2 K/mm3 (4.0-10.0)
[2020-06-08] MEDS: ATORVASTATIN CA 10 MG TABLET (FP) PO SCH (09:18)
[2020-06-08] MEDS: ASPIRIN COATED 81 MG TABLET.EC PO SCH (09:18)
[2020-06-08] MEDS: ASCORBIC ACID 500 MG TABLET (FP) PO SCH (09:18)
[2020-06-08] MEDS: ENOXAPARIN NA (PORCINE) 40 MG/0.4 ML DISP.SYRIN SQ SCH (09:19)
[2020-06-08] MEDS ORDERED: SODIUM CHLORIDE 1,000 ML IV SCH (15:30)
[2020-06-08] MEDS: MECLIZINE HCL 25 MG TABLET (FP) PO SCH ×3 (15:33→23:55)
--- NOTE | 2020-06-08 15:35 | PN ---
Physical Exam: SUBJECTIVE: HISTORY OF PRESENT ILLNESS: With the help of the ACCOUNTS PAYABLE ANALYST who speaks same language-portugues with the patient, we were able to get answers to some questions Patient is an 85 year old male with past medical history of HTN, HLD, CAD with PCI, right corneal transplant, was brought in by EMS due to dizziness X 1 day. Dizziness is said to have been sudden in onset started while patient was sleeping and made him wake up suddenly form his sleep. He says the room is spinning around him and not him spinning. It is reduced while lying or sitting still but worse with any attempt to stand up or move. It is reduced when patient sits or lies still. I tried to stand the patient up but he could barely keep his two feet on the ground, The ACCOUNTS PAYABLE ANALYST had to help me put him back in bed. He denies nausea and vomiting with trhe first episode, however, the second episode was accompanied by nausea and vomiting. Patient is curently taking frusemide( now for 3 yrs) but not on HCTZ He is said to have improved after taking ativan and Meclizine last night, however, this am, patient says he still feels the same with little or no relief. He denies fever, changes in daily routine or life style including food and physical activity. He denies hearing loss and tinnitus, trauma to the ear, recent viral illness, sick contact and recent travel. He denies weakness, numbness or tingling. Denies fevers, chills, headache, chest pain, palpitations, shortness of breath, abdominal, diarrhea, urinary symptoms. He also denies experiencing a similar event in the past Head CT - moderate atrophy without gross evidence of an acute infarct Vital Signs Period Temp Pulse Resp BP Sys/Caceres Pulse Ox Last 24 Hr 98 F-100.2 F 64-94 16-20 116-140/61-77 94-98 GENERAL: The patient is awake, alert, and fully oriented, in no acute distress. HEAD: Normal with no signs of trauma. EYES: EOMI intact, not pale, anicteric, no ptosis LUNGS: Breath sounds equal, clear to auscultation bilaterally, no wheezes, no crackles, use of accessory muscles of respiration HEART: Regular rate and rhythm, S1, S2 without murmur, rub or gallop. ABDOMEN: Soft, nontender, nondistended, normoactive bowel sounds, no hepatosplenomegaly, no masses. EXTREMITIES: 2+ pulses, warm, well-perfused, no edema. NEUROLOGICAL: Cranial nerves II through XII grossly intact. Normal speech, no dysarthria, no cerebellar ataxia. I tried to assess for gait and the severity of his dizziness on standing but the patient could barely stand, alnost fell and the ACCOUNTS PAYABLE ANALYST had to help me put him back to his bed PSYCH: Normal mood, normal affect. SKIN: Warm, dry, normal turgor, no rashes or lesions noted Laboratory Results - last 24 hr 06/07/20 06/08/20 06/08/20 11:10 06:10 06:10 WBC RBC Hgb Hct MCV MCH MCHC RDW Plt Count MPV Absolute Neuts (auto) Neutrophils % Lymphocytes % Monocytes % Eosinophils % Basophils % Nucleated RBC % ESR 8 Sodium 138 Potassium 3.9 Chloride 104 Carbon Dioxide 29 Anion Gap 5 L BUN 14.8 Creatinine 0.7 Est GFR (CKD-EPI)AfAm 100.44 Est GFR (CKD-EPI)NonAf 86.66 Random Glucose 94 Hemoglobin A1c % Calcium 8.9 Phosphorus 3.8 Magnesium 2.1 Total Bilirubin 0.7 AST 15 ALT 18 Alkaline Phosphatase 56 C-Reactive Protein < 0.3 Total Protein 6.6 Albumin 3.3 L Vitamin B12 1439 H TSH 1.23 COVID-19 (LASHAY) Not detected 06/08/20 06/08/20 06:10 06:10 WBC 7.2 RBC 3.98 L Hgb 12.8 Hct 38.4 MCV 96.4 H MCH 32.1 MCHC 33.3 RDW 13.4 Plt Count 120 L MPV 12.0 H Absolute Neuts (auto) 4.9 Neutrophils % 68.2 Lymphocytes % 25.0 D Monocytes % 5.2 D Eosinophils % 0.9 D Basophils % 0.7 Nucleated RBC % 0 ESR Sodium Potassium Chloride Carbon Dioxide Anion Gap BUN Creatinine Est GFR (CKD-EPI)AfAm Est GFR (CKD-EPI)NonAf Random Glucose Hemoglobin A1c % 4.8 Calcium Phosphorus Magnesium Total Bilirubin AST ALT Alkaline Phosphatase C-Reactive Protein Total Protein Albumin Vitamin B12 TSH COVID-19 (LASHAY) Active Medications Generic Name Dose Route Start Last Admin Trade Name Freq PRN Reason Stop Dose Admin Ascorbic Acid 500 mg 06/08/20 10:00 06/08/20 09:18 Vitamin C - PO 500 mg DAILY RICHARD Administration Aspirin 81 mg 06/07/20 10:00 06/08/20 09:18 Ecotrin - PO 81 mg DAILY RICHARD Administration Atorvastatin Calcium 10 mg 06/07/20 10:30 06/08/20 09:18 Lipitor - PO 10 mg DAILY RICHARD Administration Enoxaparin Sodium 40 mg 06/08/20 10:00 06/08/20 09:19 Lovenox - SQ 40 mg DAILY RICHARD Administration Sodium Chloride 1,000 mls @ 50 mls/hr 06/08/20 15:30 Normal Saline - IV 06/09/20 11:29 ASDIR RICHARD Meclizine HCl 25 mg 06/08/20 15:30 06/08/20 15:33 Antivert - PO 06/09/20 12:30 25 mg Q6HPO RICHARD Administration ASSESSMENT/PLAN: Patient is an 85 year old male with past medical history of HTN, HLD, CAD, PCI who presented to the ED with x1 day duration of dizziness on movement and standing with associated nausea and vomiting #Dizziness likely 2/2 BPPV Dizziness worse on movement with feeling as though the room is spinning, No tinnitus or hearing impairement. Said to have improved on meclizine Head CT reports rules out intracranial focal lesion. Echo shows no intracardiac thrombi Orthostatic negative 2x this am as well as last night Continue Meclizine 25MG Q6H as rec Will f/u Brain MRI report Echo and carotid doppler Hold lasix for 24hrs. Not on hctz Orthostatic vital q8h #HTN BP stable. Will f/u readings HTN med son hold for now Continue aspirin #HLD Continue artovastatin #FEN Resume N/S 1L 50cc/hr Monitor and replete electrolytes prn Clear liquids for diets. Will follow rec for advancement as clinically appropriate #Disposition DVT prophylaxis: Lovenox 40mg sq daily On med surg floor Full code Person to contact- Driss Rose([phone]) Pharm: EZEQUIEL-Surjit Arredondo( , fax: [phone]) Visit type - Emergency Visit Emergency Visit: Yes ED Registration Date: 06/07/20 Care time: The patient presented to the Emergency Department on the above date and was hospitalized for further evaluation of their emergent condition. - New Patient This patient is new to me today: Yes Date on this admission: 06/08/20 - Critical Care Critical Care patient: No - Discharge Referral Referred to [facility] Med P.C.: No - Medication Review Med list reviewed for High Risk Meds patients 65 and older: Yes ATTENDING PHYSICIAN STATEMENT I saw and evaluated the patient. I reviewed the resident's note and discussed the case with the resident. I agree with the resident's findings and plan as documented. SUBJECTIVE: OBJECTIVE: ASSESSMENT AND PLAN:
--- NOTE | 2020-06-08 16:47 | CON.CARD ---
Consult Consult Specialty:: cardiology Reason for Consultation:: vertigo - History of Present Illness Chief Complaint: Pt A&Ox3; his son, Be, is at beside. Pt c/o intermittent bouts of vertigo when he leans forward, though less severe than earlier today. History of Present Illness: Mr. Peters is an 85 year old man (b. Edie) with PMHx hypertension, high cholesterol, diastolic LV dysfunction with normal LVEF, mildly dilated LV, and moderately severe AR on 12/2018 ECHO, chronic right knee pain with occasional bilateral LE edema, now presents to the ED with vertigo upon waking up this morning. Last seen normal last night. Upon awakening with change in position severe vertigo associated with nausea vomiting unable to sit up very symptomatic denies chest pain shortness of breath. Pt walks six days a week, one hour session; denies chest pain or dyspnea. Stress treadmill ECHO 05/05/2019: no myocardial ischemia; fair functional exercise capacity (walked 7:30 minutes using Tacos protocol); asymptomatic throughout the examination. Last cardiology office visit 05/2020: pt deferred evaluation for aortic valve surgery or right knee repair/replacement. PMD: Dr. Hampton Farm Or Ranch Animal Caretaker: Dr. 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 Cardio/Vascular: Yes: Aortic Insufficiency (moderately severe (2019 ECHO)), CHF (diastolic), HTN, Hyperlipdemia - Alcohol/Substance Use Hx Alcohol Use: Yes (GLASS OF WINE W/DINNER) - Smoking History Smoking history: Never smoked Home Medications - Allergies Allergies/Adverse Reactions: Allergies Allergy/AdvReac Type Severity Reaction Status Date / Time No Known Drug Allergies Allergy Verified 06/07/20 07:08 - Home Medications Home Medications: Ambulatory Orders Ascorbate Calcium [Vitamin C] 500 mg PO DAILY 08/29/16 Aspirin [Aspirin EC] 81 mg PO DAILY 08/29/16 Atorvastatin Ca [Lipitor] 10 mg PO DAILY 08/29/16 Amlodipine Besylate/Benazepril [Amlodipine-Benazepril 5-10 mg] 1 tab PO DAILY 06/07/20 Furosemide [Lasix] 20 mg PO DAILY 06/07/20 Meclizine HCl [Antivert -] 25 mg PO TID PRN #30 tablet 06/08/20 Family Medical History Family History: Denies Review of Systems - Review of Systems Constitutional: reports: No Symptoms, Weakness Eyes: reports: No Symptoms HENT: reports: No Symptoms Neck: reports: No Symptoms Cardiovascular: reports: No Symptoms Respiratory: reports: No Symptoms Gastrointestinal: reports: No Symptoms Genitourinary: reports: No Symptoms Breasts: reports: No Symptoms Reported Musculoskeletal: reports: No Symptoms Integumentary: reports: No Symptoms Neurological: reports: Dizziness Endocrine: reports: No Symptoms Hematology/Lymphatic: reports: No Symptoms Psychiatric: reports: No Symptoms - Risk Factors Known Risk Factors: Yes: Age, Gender, Hypercholesterolemia, Hypertension Vital Signs: Vital Signs Temperature 98.1 F 06/08/20 14:10 Pulse Rate 68 06/08/20 14:10 Respiratory Rate 18 06/08/20 14:10 Blood Pressure 116/61 06/08/20 14:10 O2 Sat by Pulse Oximetry (%) 94 L 06/08/20 09:00 Constitutional: Yes: Calm Eyes: Yes: WNL HENT: Yes: WNL Neck: Yes: WNL Respiratory: Yes: WNL Gastrointestinal: Yes: WNL Renal/: No: Anuria Cardiovascular: Yes: WNL JVD: No Carotid Bruit: No PMI: Non-Displaced Heart Sounds: Yes: S1, S2, S4 Murmur: Yes: Systolic Murmur, Grade 2 Musculoskeletal: Yes: WNL Extremities: Yes: WNL Edema: No Peripheral Pulses WNL: Yes Integumentary: Yes: WNL, Tattoos Neurological: Yes: Alert, Other Psychiatric: Yes: WNL - Other Data Labs, Other Data: CBC, BMP 06/08/20 06:10 06/08/20 06:10 Abnormal Lab Results 06/09/20 06/09/20 06/10/20 05:35 05:35 06:00 RBC 3.84 L MCV 97.5 H 96.7 H Plt Count 108 L 113 L MPV 12.0 H 11.7 H Anion Gap 6 L Calcium 8.4 L AST 13 L Total Protein 6.3 L Albumin 3.1 L Echo: Report Reviewed Ejection Fraction %: LVEF > or = 40 % Assessment/Plan Vertigo HTN HLD Normal LVEF, diastolic LV dysfunction; mildly dilated LV, moderately severe AR (2019 ECHO) Stress ECHO negative for ischemia 05/05/2019 Plan: COVID negative F/u orthostatic vital signs (negative initially) Maintain hydration (on IVF); f/u BUn/Cr, electrolytes, Hb. TSH WNL TNI < 0.02 EKG: NSR; LVH; LAFB; nonspecific T wave changes. ECHO for LVEF, chamber sizes, valve status. Carotid artery US: mild, small plaques without significant stenoses. F/u neurology w/u.
[2020-06-08] MEDS ORDERED: MECLIZINE HCL 25 MG TABLET (FP) PO SCH (18:00)
--- NOTE | 2020-06-09 05:20 | PN ---
Physical Exam: SUBJECTIVE: Patient seen and examined. He feel s alittle better but still dizzy. The med studnet and I explained rita maneuvre to him with the assistance of the CHIEF ORDER DISPATCHER who interpreted for us. OBJECTIVE: Vital Signs Period Temp Pulse Resp BP Sys/Caceres Pulse Ox Last 24 Hr 97.7 F-98.8 F 57-68 18-18 114-141/61-72 94-95 GENERAL: The patient is awake, alert, and fully oriented, in no acute distress. HEAD: Normal with no signs of trauma. EYES: EOMI intact, not pale, anicteric, no ptosis LUNGS: Breath sounds equal, clear to auscultation bilaterally, no wheezes, no crackles, use of accessory muscles of respiration HEART: Regular rate and rhythm, S1, S2 without murmur, rub or gallop. ABDOMEN: Soft, nontender, nondistended, normoactive bowel sounds, no hepatosplenomegaly, no masses. EXTREMITIES: 2+ pulses, warm, well-perfused, no edema. We got his to stand with 3 persons assistance. He took about 4 steps and then asked to sit because he got very dizzy. NEUROLOGICAL: Cranial nerves II through XII grossly intact. Normal speech, no dysarthria, no cerebellar ataxia. PSYCH: Normal mood, normal affect. SKIN: Warm, dry, normal turgor, no rashes or lesions noted Laboratory Results - last 24 hr 06/08/20 06/08/20 06/08/20 06:10 06:10 06:10 WBC RBC Hgb Hct MCV MCH MCHC RDW Plt Count MPV Absolute Neuts (auto) Neutrophils % Lymphocytes % Monocytes % Eosinophils % Basophils % Nucleated RBC % ESR 8 Sodium 138 Potassium 3.9 Chloride 104 Carbon Dioxide 29 Anion Gap 5 L BUN 14.8 Creatinine 0.7 Est GFR (CKD-EPI)AfAm 100.44 Est GFR (CKD-EPI)NonAf 86.66 Random Glucose 94 Hemoglobin A1c % 4.8 Calcium 8.9 Phosphorus 3.8 Magnesium 2.1 Total Bilirubin 0.7 AST 15 ALT 18 Alkaline Phosphatase 56 C-Reactive Protein < 0.3 Total Protein 6.6 Albumin 3.3 L Vitamin B12 1439 H TSH 1.23 06/08/20 06:10 WBC 7.2 RBC 3.98 L Hgb 12.8 Hct 38.4 MCV 96.4 H MCH 32.1 MCHC 33.3 RDW 13.4 Plt Count 120 L MPV 12.0 H Absolute Neuts (auto) 4.9 Neutrophils % 68.2 Lymphocytes % 25.0 D Monocytes % 5.2 D Eosinophils % 0.9 D Basophils % 0.7 Nucleated RBC % 0 ESR Sodium Potassium Chloride Carbon Dioxide Anion Gap BUN Creatinine Est GFR (CKD-EPI)AfAm Est GFR (CKD-EPI)NonAf Random Glucose Hemoglobin A1c % Calcium Phosphorus Magnesium Total Bilirubin AST ALT Alkaline Phosphatase C-Reactive Protein Total Protein Albumin Vitamin B12 TSH Active Medications Generic Name Dose Route Start Last Admin Trade Name Freq PRN Reason Stop Dose Admin Ascorbic Acid 500 mg 06/08/20 10:00 06/08/20 09:18 Vitamin C - PO 500 mg DAILY RICHARD Administration Aspirin 81 mg 06/07/20 10:00 06/08/20 09:18 Ecotrin - PO 81 mg DAILY RICHARD Administration Atorvastatin Calcium 10 mg 06/07/20 10:30 06/08/20 09:18 Lipitor - PO 10 mg DAILY RICHARD Administration Enoxaparin Sodium 40 mg 06/08/20 10:00 06/08/20 09:19 Lovenox - SQ 40 mg DAILY RICHARD Administration Sodium Chloride 1,000 mls @ 50 mls/hr 06/08/20 15:30 06/08/20 15:53 Normal Saline - IV 06/09/20 11:29 50 mls/hr ASDIR RICHARD Administration Meclizine HCl 25 mg 06/08/20 15:30 06/08/20 23:55 Antivert - PO 06/09/20 12:30 25 mg Q6HPO RICHARD Administration ASSESSMENT/PLAN: Patient is an 85 year old male with past medical history of HTN, HLD, CAD, PCI who presented to the ED with x1 day duration of dizziness on movement and standing with associated nausea and vomiting #Dizziness likely 2/2 BPPV To f/u with ENT as out patient on dc. For the mean time, the med student and I have taught patient how to perform self rita maneuvre Dizziness worse on movement with feeling as though the room is spinning, No tinnitus or hearing impairement. Head CT reports rules out intracranial focal lesion. Continue Meclizine 25MG Q6H as rec EKG: NSR; LVH; LAFB; nonspecific T wave changes. ECHO report: LVEF, chamber sizes, valve status. Carotid artery US: mild, small plaques without significant stenoses. Neuro consult on hold. Will consult neuro if patient does not improve with current Rx Hold lasix for 24hrs. Not on hctz Orthostatic vital q8h: negative throughtout yesterday. Continue orthostatic vitals today #BRAIN MRI: No evidence of aneurysm or intracranial arteriovenous venous malf ormation. No evidence of basilar artery stenosis, dissection or occlusion. Minimal atheromatous changes cavernous portion internal carotid arteries, basilar artery and the middle cerebral arteries branches with no evidence of severe stenosis, dissection or occlusion. #HTN BP stable. Will f/u readings HTN meds on hold for now Continue aspirin #HLD Continue artovastatin #FEN Resume N/S 1L 50cc/hr Monitor and replete electrolytes prn Clear liquids for diets. Will follow rec for advancement as clinically appropriate #Disposition DVT prophylaxis: Lovenox 40mg sq daily On med surg floor Full code Patient on observation-Possible dc 06/09/20 Person to contact- Driss Rose([phone]) Pharm: [id number] [address]( , fax: [phone]) Visit type - Emergency Visit Emergency Visit: Yes ED Registration Date: 06/07/20 Care time: The patient presented to the Emergency Department on the above date and was hospitalized for further evaluation of their emergent condition. - New Patient This patient is new to me today: No - Critical Care Critical Care patient: No - Discharge Referral Referred to [facility] Med P.C.: No - Medication Review Med list reviewed for High Risk Meds patients 65 and older: Yes ATTENDING PHYSICIAN STATEMENT I saw and evaluated the patient. I reviewed the resident's note and discussed the case with the resident. I agree with the resident's findings and plan as documented. SUBJECTIVE: OBJECTIVE: ASSESSMENT AND PLAN:
[2020-06-09] MEDS: MECLIZINE HCL 25 MG TABLET (FP) PO SCH ×3 (05:56→17:53)
[2020-06-09 07:35] LABS: BASO % 1.2 % (0-2.0); EOS % 2.1 % (0-4.5); HEMATOCRIT 37.4 % (35.4-49); HEMOGLOBIN 12.2 GM/dL (11.7-16.9); MCH 31.9 pg (25.7-33.7); MCHC 32.7 g/dl (32.0-35.9); MEAN CELL VOLUME 97.5 fl (80-96); NEUT % 66.7 % (42.8-82.8); PLATELET COUNT 108 K/MM3 (134-434); RBC 3.84 M/mm3 (4.00-5.60); RDW 13.3 % (11.9-15.9); WHITE BLOOD COUNT 6.6 K/mm3 (4.0-10.0)
[2020-06-09 08:04] LABS: POTASSIUM 3.8 mmol/L (3.5-5.1)
[2020-06-09 08:44] LABS: CALCIUM 8.4 mg/dL (8.5-10.1)
[2020-06-09 08:45] LABS: ALBUMIN 3.1 g/dl (3.4-5.0); BLOOD UREA NITROGEN 14.9 mg/dL (7-18)
--- NOTE | 2020-06-09 08:45 | PN ---
Teaching Attending Note Name of Resident: Bridgette Barajas ATTENDING PHYSICIAN STATEMENT I saw and evaluated the patient. I reviewed the resident's note and discussed the case with the resident. I agree with the resident's findings and plan as documented. SUBJECTIVE: Patient continues to be dizzy on standing, continues to be unsteady on his feet. OBJECTIVE: Vital Signs Temperature 98.6 F 06/09/20 07:54 Pulse Rate 68 06/09/20 07:54 Respiratory Rate 18 06/09/20 07:54 Blood Pressure 127/64 06/09/20 07:54 O2 Sat by Pulse Oximetry (%) 95 06/09/20 07:54 PE:per resident's note CBCD WBC 6.6 K/mm3 (4.0-10.0) 06/09/20 05:35 RBC 3.84 M/mm3 (4.00-5.60) L 06/09/20 05:35 Hgb 12.2 GM/dL (11.7-16.9) 06/09/20 05:35 Hct 37.4 % (35.4-49) 06/09/20 05:35 MCV 97.5 fl (80-96) H 06/09/20 05:35 MCHC 32.7 g/dl (32.0-35.9) 06/09/20 05:35 RDW 13.3 % (11.9-15.9) 06/09/20 05:35 Plt Count 108 K/MM3 (134-434) L 06/09/20 05:35 MPV 12.0 fl (7.5-11.1) H 06/09/20 05:35 CMP Sodium 139 mmol/L (136-145) 06/09/20 05:35 Potassium 3.8 mmol/L (3.5-5.1) 06/09/20 05:35 Chloride 106 mmol/L (98-107) 06/09/20 05:35 Carbon Dioxide 29 mmol/L (21-32) 06/08/20 06:10 Anion Gap 5 MMOL/L (8-16) L 06/08/20 06:10 BUN 14.8 mg/dL (7-18) 06/08/20 06:10 Creatinine 0.7 mg/dL (0.55-1.3) 06/08/20 06:10 Random Glucose 94 mg/dL (74-106) 06/08/20 06:10 Calcium 8.9 mg/dL (8.5-10.1) 06/08/20 06:10 Total Bilirubin 0.7 mg/dL (0.2-1) 06/08/20 06:10 AST 15 U/L (15-37) 06/08/20 06:10 ALT 18 U/L (13-61) 06/08/20 06:10 Alkaline Phosphatase 56 U/L (45-117) 06/08/20 06:10 Total Protein 6.6 g/dl (6.4-8.2) 06/08/20 06:10 Albumin 3.3 g/dl (3.4-5.0) L 06/08/20 06:10 CARDIAC ENZYMES Troponin I < 0.02 ng/ml (0.00-0.05) 06/07/20 07:34 Current Medications Generic Name Dose Route Start Last Admin Trade Name Freq PRN Reason Stop Dose Admin Ascorbic Acid 500 mg 06/08/20 10:00 06/08/20 09:18 Vitamin C - PO 500 mg DAILY RICHARD Administration Aspirin 81 mg 06/07/20 10:00 06/08/20 09:18 Ecotrin - PO 81 mg DAILY RICHARD Administration Atorvastatin Calcium 10 mg 06/07/20 10:30 06/08/20 09:18 Lipitor - PO 10 mg DAILY RICHARD Administration Enoxaparin Sodium 40 mg 06/08/20 10:00 06/08/20 09:19 Lovenox - SQ 40 mg DAILY RICHARD Administration Sodium Chloride 1,000 mls @ 50 mls/hr 06/08/20 15:30 06/08/20 15:53 Normal Saline - IV 06/09/20 11:29 50 mls/hr ASDIR RICHARD Administration Meclizine HCl 25 mg 06/08/20 15:30 06/09/20 05:56 Antivert - PO 06/09/20 12:30 25 mg Q6HPO RICHARD Administration Home Medications Medication Instructions Recorded Ascorbate Calcium [Vitamin C] 500 mg PO DAILY 08/29/16 Aspirin [Aspirin EC] 81 mg PO DAILY 08/29/16 Atorvastatin Ca [Lipitor] 10 mg PO DAILY 08/29/16 Amlodipine Besylate/Benazepril 1 tab PO DAILY 06/07/20 [Amlodipine-Benazepril 5-10 mg] Furosemide [Lasix] 20 mg PO DAILY 06/07/20 Meclizine HCl [Antivert -] 25 mg PO TID PRN #30 tablet 06/08/20 Brain MRI: no evidence of acute infarct, small areas of gliosis in the white matter of both hemispheres sequela to HTN or small vessel arteriosclerosis. No evidence of intracerebral hemorrhage, or hydrocephalus. Brain MRA: No evidence of aneurysm or intracranial AV malformation. Minimal atheromatous changes cavernous portion internal carotid arteries, basilar artery and in the middle cerebral arteries branches with no evidence of severe stenosis, dissection or occlusion. Carotid duplex: mild intimal thickening at the common carotid bifurcation ,bl and small plaques in the left bulb and proximal internal carotid artery without evidence of hemodynamically significant stenosis. ASSESSMENT AND PLAN: Patient is an 85yom with PMHx of HTN, HLD, CAD, was brought in by EMS due to dizziness accompanied by nausea and vomiting for one day. #Acute Dizziness : possible due to dehydration , will give him another liter of IVF , will hold his diuretic now. MRA/MRI of the brain as above. continue meclizine, as an scheduled dose for one more day then prn , no orthostatics continue ASA and statin, echo and carotid doppler. physical therapy, cardio consulted and appreciated #HTN controlled while lying in bed, but feels dizzy on standing up , no orthostatics for now #HLD: continue Lipitor DVT Px: Lovenox 40mg sq daily full code patient was amde an appointment to go to Dr Enrrique Palacios's office ENT in am bt 1- 3pm
[2020-06-09 08:48] LABS: CREATININE 0.7 mg/dL (0.55-1.3)
[2020-06-09 08:50] LABS: BILIRUBIN,TOTAL 0.8 mg/dL (0.2-1); TOT PROT 6.3 g/dl (6.4-8.2)
--- NOTE | 2020-06-09 08:55 | PN ---
Progress Note, Physician History of Present Illness: Mr. Peters is an 85 year old man (b. Edie) with PMHx hypertension, high cholesterol, diastolic LV dysfunction with normal LVEF, mildly dilated LV, and moderately severe AR on 12/2018 ECHO, chronic right knee pain with occasional bilateral LE edema, now presents to the ED with vertigo upon waking up this morning. Last seen normal last night. Upon awakening with change in position s evere vertigo associated with nausea vomiting unable to sit up very symptomatic denies chest pain shortness of breath. Pt walks six days a week, one hour session; denies chest pain or dyspnea. Stress treadmill ECHO 05/05/2019: no myocardial ischemia; fair functional exercise capacity (walked 7:30 minutes using [employer] protocol); asymptomatic throughout the examination. Last cardiology office visit 05/2020: pt deferred evaluation for aortic valve surgery or right knee repair/replacement. PMD: Dr. Hampton Grant Officer: Dr. aHrdy - Current Medication List Current Medications: Active Medications Ascorbic Acid (Vitamin C -) 500 mg PO DAILY [facility] Last Admin: 06/08/20 09:18 Dose: 500 mg Documented by: Aspirin (Ecotrin -) 81 mg PO DAILY [facility] Last Admin: 06/08/20 09:18 Dose: 81 mg Documented by: Atorvastatin Calcium (Lipitor -) 10 mg PO DAILY [facility] Last Admin: 06/08/20 09:18 Dose: 10 mg Documented by: Enoxaparin Sodium (Lovenox -) 40 mg SQ DAILY [facility] Last Admin: 06/08/20 09:19 Dose: 40 mg Documented by: Sodium Chloride (Normal Saline -) 1,000 mls @ 50 mls/hr IV ASDIR [facility] Stop: 06/09/20 11:29 Last Admin: 06/08/20 15:53 Dose: 50 mls/hr Documented by: Meclizine HCl (Antivert -) 25 mg PO Q6HPO [facility] Stop: 06/09/20 12:30 Last Admin: 06/09/20 05:56 Dose: 25 mg Documented by: - Objective Vital Signs: Vital Signs Temperature 98.6 F 06/09/20 07:54 Pulse Rate 68 06/09/20 07:54 Respiratory Rate 18 06/09/20 07:54 Blood Pressure 127/64 06/09/20 07:54 O2 Sat by Pulse Oximetry (%) 95 06/09/20 07:54 Eyes: Yes: WNL, Conjunctiva Clear, EOM Intact HENT: Yes: WNL, Atraumatic, Normocephalic Neck: Yes: WNL, Supple, Trachea Midline Cardiovascular: Yes: WNL, Regular Rate and Rhythm, Murmur Respiratory: Yes: WNL, Regular, CTA Bilaterally Gastrointestinal: Yes: WNL, Normal Bowel Sounds Genitourinary: Yes: WNL Musculoskeletal: Yes: WNL Extremities: Yes: WNL Edema: No Integumentary: Yes: WNL Neurological: Yes: WNL, Alert, Oriented ...Motor Strength: WNL Psychiatric: Yes: WNL Labs: CBC, BMP 06/09/20 05:35 06/09/20 05:35 Assessment/Plan Vertigo HTN HLD Normal LVEF, diastolic LV dysfunction; mildly dilated LV, moderately severe AR (2019 ECHO) Stress ECHO negative for ischemia 05/05/2019 COVID negative Plan: F/u orthostatic vital signs (negative initially) Maintain hydration (on IVF); f/u BUn/Cr, electrolytes, Hb. TSH WNL TNI < 0.02 EKG: NSR; LVH; LAFB; nonspecific T wave changes. ECHO for LVEF, chamber sizes, valve status. Carotid artery US: mild, small plaques without significant stenoses. F/u neurology w/u.
[2020-06-09] MEDS: ASPIRIN COATED 81 MG TABLET.EC PO SCH (09:15)
[2020-06-09] MEDS: ATORVASTATIN CA 10 MG TABLET (FP) PO SCH (09:15)
[2020-06-09] MEDS: ASCORBIC ACID 500 MG TABLET (FP) PO SCH (09:16)
[2020-06-09] MEDS: ENOXAPARIN NA (PORCINE) 40 MG/0.4 ML DISP.SYRIN SQ SCH (09:16)
[2020-06-09] MEDS ORDERED: SODIUM CHLORIDE 1,000 ML IV SCH (15:00)
[2020-06-10] MEDS: MECLIZINE HCL 25 MG TABLET (FP) PO SCH ×3 (00:57→12:25)
[2020-06-10 06:52] LABS: BASO % 1.2 % (0-2.0); EOS % 3.2 % (0-4.5); HEMATOCRIT 38.9 % (35.4-49); HEMOGLOBIN 12.7 GM/dL (11.7-16.9); LYMPH % 31.1 % (8-40); MCH 31.7 pg (25.7-33.7); MCHC 32.8 g/dl (32.0-35.9); MEAN CELL VOLUME 96.7 fl (80-96); MEAN PLT VOLUME 11.7 fl (7.5-11.1); NEUT % 58.5 % (42.8-82.8); PLATELET COUNT 113 K/MM3 (134-434); RBC 4.02 M/mm3 (4.00-5.60); RDW 13.1 % (11.9-15.9); WHITE BLOOD COUNT 6.4 K/mm3 (4.0-10.0)
[2020-06-10 07:54] LABS: BLOOD UREA NITROGEN 15.7 mg/dL (7-18)
[2020-06-10 07:56] LABS: CALCIUM 8.8 mg/dL (8.5-10.1); CREATININE 0.8 mg/dL (0.55-1.3)
[2020-06-10 07:57] LABS: ALBUMIN 3.2 g/dl (3.4-5.0)
[2020-06-10 07:58] LABS: BILIRUBIN,TOTAL 1.7 mg/dL (0.2-1)
[2020-06-10 07:59] LABS: TOT PROT 6.5 g/dl (6.4-8.2)
[2020-06-10] MEDS: ATORVASTATIN CA 10 MG TABLET (FP) PO SCH (09:21)
[2020-06-10] MEDS: ASCORBIC ACID 500 MG TABLET (FP) PO SCH (09:22)
[2020-06-10] MEDS: ASPIRIN COATED 81 MG TABLET.EC PO SCH (09:22)
[2020-06-10] MEDS: ENOXAPARIN NA (PORCINE) 40 MG/0.4 ML DISP.SYRIN SQ SCH (09:22)
[2020-06-10 10:16] VITALS: BP 132/63; PULSE 71; TEMP 98.5
--- NOTE | 2020-06-10 20:59 | DS ---
Physical Exam: SUBJECTIVE: Patient seen and examined. He feels much better but still dizzy. The patient told me he was able to walk to the bathroom but still dizzy especially when he turns his head. OBJECTIVE: Vital Signs Period Temp Pulse Resp BP Sys/Caceres Pulse Ox Last 24 Hr 98.2 F-98.5 F 61-74 20-20 125-141/61-73 95-96 PHYSICAL EXAM GENERAL: The patient is awake, alert, and fully oriented, in no acute distress. HEAD: Normal with no signs of trauma. EYES: EOMI intact, anicteric, not pale, no ptosis LUNGS: Breath sounds equal, clear to auscultation bilaterally, no wheezes, no crackles, use of accessory muscles of respiration HEART: Regular rate and rhythm, S1, S2 without murmur, rub or gallop. ABDOMEN: Soft, nontender, nondistended, normoactive bowel sounds, no hepatosplenomegaly, no masses. EXTREMITIES: 2+ pulses, warm, well-perfused, no edema.. NEUROLOGICAL: Cranial nerves II through XII grossly intact. Normal speech, no dysarthria, no cerebellar ataxia. PSYCH: Normal mood, normal affect. SKIN: Warm, dry, normal turgor, no rashes/lesions seen. LABS Laboratory Results - last 24 hr 06/10/20 06/10/20 06:00 06:00 WBC 6.4 RBC 4.02 Hgb 12.7 Hct 38.9 MCV 96.7 H MCH 31.7 MCHC 32.8 RDW 13.1 Plt Count 113 L MPV 11.7 H Absolute Neuts (auto) 3.7 Neutrophils % 58.5 Lymphocytes % 31.1 D Monocytes % 6.0 Eosinophils % 3.2 Basophils % 1.2 Nucleated RBC % 0 Sodium 140 Potassium 4.0 Chloride 106 Carbon Dioxide 26 Anion Gap 7 L BUN 15.7 Creatinine 0.8 Est GFR (CKD-EPI)AfAm 95.07 Est GFR (CKD-EPI)NonAf 82.03 Random Glucose 87 Calcium 8.8 Total Bilirubin 1.7 H AST 15 ALT 18 Alkaline Phosphatase 56 Total Protein 6.5 Albumin 3.2 L HOSPITAL COURSE: Date of Admission:06/07/20 Patient is an 85 year old male with past medical history of HTN, HLD, CAD with PCI, right corneal transplant, was brought in by EMS due to dizziness X 1 day. Dizziness is said to have been sudden in onset started while patient was sleeping and made him wake up suddenly form his sleep. He says the room is spinning around him and not him spinning. It is reduced while lying or sitting still but worse with any attempt to stand up or move. It is reduced when patient sits or lies still. He is said to have improved after taking ativan and Meclizine last night, however, this am, patient says he still feels the same with little or no relief. He denies fever, changes in daily routine or life style including food and physical activity. He denies hearing loss and tinnitus, trauma to the ear, recent viral illness, sick contact and recent travel. He denies weakness, numbness or tingling. Denies fevers, chills, headache, chest pain, palpitations, shortness of breath, abdominal, diarrhea, urinary symptoms. He also denies experiencing a similar event in the past. His orthostatic vitals have been repeatedly negative. Head CT - moderate atrophy without gross evidence of an acute infarct. Head MRI also r/o acute intracranial pathology. The patient was later diagnosed with BPPV. He felt better after the first dose of meclizine and has been on 25mg meclizine q6h since then. His symptoms have since improved and he is stable enough to follow up with ENT specialist, Dr. Philip Osuna on out-patient basis. He has also been advised to follow up with Dr. Veras in the event that he needs to see a neurologist as well. He was discharged home with meclizine 25mg tid x 10 days Date of Discharge: 06/10/20 Minutes to complete discharge: 25 Discharge Summary Problems reviewed: Yes Reason For Visit: VERTIGO Condition: Stable - Instructions Diet, Activity, Other Instructions: You were admitted for dizziness (vetrigo). We treated you with a medication to help with the dizziness. You had several imaging studies (MRI, MRA, carotid ultrasound) and they were all found to be normal. If the dizziness continues, please follow up with a neurologist, Dr. Lewis. He will give your more measures that will hasten your improvement. You should follow up with your PCP as well in 1 week after discharge to make sure your dizziness is improving with the meclizine. If you do not have a PCP, you can follow up with Dr. Bridgette Barajas at the [facility] clinic located at [address] [place] [address] ([phone]) You should START taking meclizine 25 mg by mouth up to three times a day every 8 hours as needed for dizziness You should continue your other home meds as prescribed. Follow ups: Please Follow up with Dr. Enrrique Palacios (06/10 at 3:45 pm) This appointment has been scheduled for you. Please follow up with Physical therapy as well ([phone]). They can help you with your walking. Please return to the ER if you have any worsening of your current symptoms or warning signs like severe headache, dizziness, chest pain, vision changes, numbness/weakness etc. Referrals: Alonso Hampton MD [Primary Care Provider] - Diallo Lewis MD [Staff Physician] - Enrrique Palacios MD [Staff Physician] - 06/10/20 3:45 pm (Please arrive 15min early to fill out paper work.) Disposition: HOME - Home Medications Comprehensive Discharge Medication List: Ambulatory Orders Ascorbate Calcium [Vitamin C] 500 mg PO DAILY 08/29/16 Aspirin [Aspirin EC] 81 mg PO DAILY 08/29/16 Atorvastatin Ca [Lipitor] 10 mg PO DAILY 08/29/16 Amlodipine Besylate/Benazepril [Amlodipine-Benazepril 5-10 mg] 1 tab PO DAILY 06/07/20 Furosemide [Lasix] 20 mg PO DAILY 06/07/20 Meclizine HCl [Antivert -] 25 mg PO TID PRN #30 tablet 06/08/20 This patient is new to me today: No Emergency Visit: Yes ED Registration Date: 06/07/20 Care time: The patient presented to the Emergency Department on the above date and was hospitalized for further evaluation of their emergent condition. Critical Care patient: No - Discharge Referral Referred to [facility] Med P.C.: No ATTENDING PHYSICIAN STATEMENT I saw and evaluated the patient. I reviewed the resident's note and discussed the case with the resident. I agree with the resident's findings and plan as documented. SUBJECTIVE: OBJECTIVE: ASSESSMENT AND PLAN:
== END 2020-06-10 15:25 | disposition home or self-care (01) | DRG 149 ==
LOC: JER 06:59 → OBSVTOIN 11:34 → JERBED 11:34 → J4W 22:57
PROVIDERS: ATTEND Internal Medicine
DX: H81.10 Benign paroxysmal vertigo, unspecified ear (principal); I50.32 Chronic diastolic (congestive) heart failure; I10 Essential (primary) hypertension; E78.5 Hyperlipidemia, unspecified; I25.10 Atherosclerotic heart disease of native coronary artery without angina pectoris; E86.0 Dehydration
CPT/HCPCS: 36415; 70450-TC; 70544-TC; 70551-TC; 71045-TC-FY; 80053; 80061; 81003; 82607; 83036; 83721; 83735; 84100; 84443; 84484; 85025; 85651; 86140; 87040; 87086; 93005; 93010; 93306-TC; 93880-TC; 97116-GP; 97161-GP; 99285-25; C9803; U0003

== ENCOUNTER 2020-08-12 16:27 | Emergency (ER) | payer OTHER ==
[2020-08-12 16:49] VITALS: TEMP 98.1; BMI 26.1
[2020-08-12 18:04] LABS: BASO % 0.4 % (0-2.0); EOS % 0.1 % (0-4.5); HEMOGLOBIN 12.9 GM/dL (11.7-16.9); LYMPH % 14.7 % (8-40); MCH 32.2 pg (25.7-33.7); MEAN CELL VOLUME 94.8 fl (80-96); MEAN PLT VOLUME 11.4 fl (7.5-11.1); MONO % 4.9 % (3.8-10.2); NEUT % 79.9 % (42.8-82.8); PLATELET COUNT 115 K/MM3 (134-434); RBC 4.01 M/mm3 (4.00-5.60); RDW 13.3 % (11.9-15.9); WHITE BLOOD COUNT 10.6 K/mm3 (4.0-10.0)
[2020-08-12 18:09] LABS: INR 1.21 (0.83-1.09); PROTHROMBIN TIME (PATIENT) 14.6 SEC (9.7-13.0)
[2020-08-12 18:12] LABS: ACTIVATED PTT 37.7 SECONDS (25.2-36.5)
[2020-08-12 18:27] LABS: BLOOD UREA NITROGEN 20.8 mg/dL (7-18); CALCIUM 8.1 mg/dL (8.5-10.1)
[2020-08-12 18:28] LABS: ALBUMIN 3.6 g/dl (3.4-5.0); MAGNESIUM 1.6 mg/dL (1.8-2.4)
[2020-08-12 18:31] LABS: CREATININE 1.1 mg/dL (0.55-1.3)
[2020-08-12 18:32] LABS: BILIRUBIN,TOTAL 0.8 mg/dL (0.2-1); TOT PROT 7.4 g/dl (6.4-8.2)
[2020-08-12] MEDS ORDERED: BAMLANIVIMAB 700 MG in SODIUM CHLORIDE 180 ML IVPB ONE (19:59)
[2020-08-12 22:43] VITALS: BP 117/65; PULSE 80
== END 2020-08-12 23:10 | disposition home or self-care (01) ==
LOC: JER 16:27
DX: Z11.52 Encounter for screening for COVID-19 (principal)
CPT/HCPCS: 36415; 71046-TC-FY; 80053; 82550; 83735; 84484; 85025; 85610; 85730; 87426; 93005; 93010; G2251-GT; M0239; Q0239

== ENCOUNTER 2022-01-05 15:53 | Inpatient (IN) | payer OTHER ==
[2022-01-05] MEDS ORDERED: MAG HYDROX/AL HYDROX/SIMETH -MYLANTA- ORAL SUSPENSION PO ONE (16:12)
[2022-01-05] MEDS ORDERED: FAMOTIDINE 20 MG/50 ML IVPB 20 MG in PREMIX 50 IVPB ONE (16:12)
[2022-01-05] MEDS ORDERED: MAG HYDROX/AL HYDROX/SIMETH 30 ML UNIT-DOSE CUP ONE (16:18)
[2022-01-05] MEDS ORDERED: FAMOTIDINE 20 MG/50 ML IVPB 20 MG/50 ML MG IVPB ONE (16:18)
[2022-01-05 16:54] LABS: HEMATOCRIT 39.8 % (35.4-49); MCH 33.8 pg (25.7-33.7); MCHC 35.2 g/dl (32.0-35.9); MEAN CELL VOLUME 95.9 fl (80-96); MEAN PLT VOLUME 10.6 fl (7.5-11.1); PLATELET COUNT 165.4 10^3/uL (134-434); RBC 4.15 10^6/uL (4.00-5.60); RDW 13.8 % (11.9-15.9); WHITE BLOOD COUNT 7.7 10^3/uL (4.0-10.8)
[2022-01-05 16:59] LABS: ALBUMIN 3.6 g/dl (3.4-5.0); BILIRUBIN,TOTAL 1.1 mg/dl (0.2-1); CALCIUM 9.1 mg/dl (8.5-10); CREATININE 0.8 mg/dl (0.55-1.3)
[2022-01-05 17:16] LABS: PLATELET ESTIMATE ADEQUATE
[2022-01-05 18:04] LABS: VENOUS BASE EXCESS 5.1 mmol/L (-2-2); VENOUS O2 SATURATION 32.7 % (70-80); VENOUS PCO2 50.6 mmHg (38-52); VENOUS PH 7.406 (7.310-7.410)
[2022-01-05 18:15] LABS: N-TERMINAL BNP 559.7 pg/ml (5-450)
[2022-01-05] MEDS ORDERED: ATORVASTATIN CA 10 MG TABLET (FP) PO SCH (22:13)
[2022-01-06] MEDS: NYSTATIN 500,000 UNITS/5 ML SUSPENSION PO SCH ×7 (00:38→21:21)
[2022-01-06] MEDS: HEPARIN NA (PORCINE) 5,000 UNITS/ML 1ML VIAL SQ SCH ×3 (06:13→21:21)
[2022-01-06 08:06] LABS: CALCIUM 8.7 mg/dl (8.5-10); CREATININE 0.8 mg/dl (0.55-1.3)
[2022-01-06 08:18] LABS: HEMATOCRIT 36.7 % (35.4-49); HEMOGLOBIN 12.8 G/dL (11.7-16.9); INR 1.26 (0.83-1.09); MCH 33.6 pg (25.7-33.7); MCHC 34.7 g/dl (32.0-35.9); MEAN CELL VOLUME 96.5 fl (80-96); MEAN PLT VOLUME 10.7 fl (7.5-11.1); PLATELET COUNT 173.1 10^3/uL (134-434); PROTHROMBIN TIME (PATIENT) 14.5 SEC (9.7-13.0); RDW 13.7 % (11.9-15.9); WHITE BLOOD COUNT 6.4 10^3/uL (4.0-10.8)
[2022-01-06 08:20] LABS: ACTIVATED PTT 33.8 SECONDS (25.2-36.5)
[2022-01-06] MEDS ORDERED: CYANOCOBALAMIN 1,000 MCG TABLET (FP) PO SCH (10:00)
[2022-01-06] MEDS ORDERED: LISINOPRIL 20 MG TABLET PO SCH (10:00)
[2022-01-06] MEDS ORDERED: FUROSEMIDE 20 MG TABLET (FP) PO SCH (10:00)
[2022-01-06] MEDS ORDERED: CHOLECALCIFEROL (VIT D3) 1,000 UNIT (25 MCG) TABLET PO SCH (10:00)
[2022-01-06] MEDS ORDERED: FUROSEMIDE 40 MG/4 ML INJECTABLE VIAL IVPUSH ONE (13:00)
[2022-01-06] MEDS ORDERED: PANTOPRAZOLE 40 MG TABLET PO SCH (13:30)
[2022-01-06] MEDS: ATORVASTATIN CA 10 MG TABLET (FP) PO SCH (21:21)
[2022-01-07] MEDS: NYSTATIN 500,000 UNITS/5 ML SUSPENSION PO SCH ×6 (03:22→22:26)
[2022-01-07] MEDS: HEPARIN NA (PORCINE) 5,000 UNITS/ML 1ML VIAL SQ SCH ×3 (05:32→22:25)
[2022-01-07] MEDS: CHOLECALCIFEROL (VIT D3) 1,000 UNIT (25 MCG) TABLET PO SCH (09:40)
[2022-01-07] MEDS: CYANOCOBALAMIN 1,000 MCG TABLET (FP) PO SCH (09:40)
[2022-01-07] MEDS: PANTOPRAZOLE 40 MG TABLET PO SCH (09:40)
[2022-01-07] MEDS: LISINOPRIL 20 MG TABLET PO SCH (09:40)
[2022-01-07] MEDS ORDERED: FUROSEMIDE 40 MG/4 ML INJECTABLE VIAL IVPUSH ONE (10:45)
[2022-01-07] MEDS ORDERED: BISACODYL 5 MG TABLET.DR (FP) PO ONE (16:45)
[2022-01-07] MEDS: ATORVASTATIN CA 10 MG TABLET (FP) PO SCH (22:25)
[2022-01-08] MEDS: NYSTATIN 500,000 UNITS/5 ML SUSPENSION PO SCH ×6 (02:04→21:35)
[2022-01-08] MEDS: HEPARIN NA (PORCINE) 5,000 UNITS/ML 1ML VIAL SQ SCH ×3 (06:37→21:35)
[2022-01-08] MEDS ORDERED: INSULIN (NOVOLOG) ASPART 100 UNITS/ML 10ML VIAL ONE (07:01)
[2022-01-08 08:22] LABS: BASO % 0.4 % (0-2.0); EOS % 0.9 % (0-4.5); HEMATOCRIT 39.7 % (35.4-49); HEMOGLOBIN 13.6 GM/dL (11.7-16.9); LYMPH % 19.3 % (8-40); MCH 32.5 pg (25.7-33.7); MCHC 34.1 g/dl (32.0-35.9); MEAN CELL VOLUME 95.3 fl (80-96); MEAN PLT VOLUME 10.3 fl (7.5-11.1); MONO % 8.4 % (3.8-10.2); PLATELET COUNT 191 10^3/uL (134-434); RBC 4.17 M/mm3 (4.00-5.60); RDW 13.1 % (11.9-15.9); WHITE BLOOD COUNT 7.1 K/mm3 (4.0-10.0)
[2022-01-08 09:25] LABS: ALBUMIN 3.2 g/dl (3.4-5.0); BILIRUBIN,TOTAL 0.7 mg/dL (0.2-1); BLOOD UREA NITROGEN 22.1 mg/dL (7-18); CALCIUM 8.4 mg/dL (8.5-10.1); MAGNESIUM 2.4 mg/dL (1.8-2.4); PHOSPHOROUS 3.4 mg/dL (2.5-4.9); TOT PROT 7.2 g/dl (6.4-8.2)
[2022-01-08] MEDS: LISINOPRIL 20 MG TABLET PO SCH (10:18)
[2022-01-08] MEDS: CHOLECALCIFEROL (VIT D3) 1,000 UNIT (25 MCG) TABLET PO SCH (10:18)
[2022-01-08] MEDS: PANTOPRAZOLE 40 MG TABLET PO SCH (10:18)
[2022-01-08] MEDS: CYANOCOBALAMIN 1,000 MCG TABLET (FP) PO SCH (10:18)
[2022-01-08] MEDS ORDERED: DEXTROSE 5%-WATER - 50 ML IVPB ONE (15:17)
[2022-01-08] MEDS ORDERED: cefTRIAXone SODIUM 1 GM VIAL ONE (15:17)
[2022-01-08] MEDS: CEFTRIAXONE 1 GM in DEXTROSE 5%-WATER - 50 ML IVPB SCH (15:19)
[2022-01-08] MEDS: ATORVASTATIN CA 10 MG TABLET (FP) PO SCH (21:35)
[2022-01-09] MEDS: NYSTATIN 500,000 UNITS/5 ML SUSPENSION PO SCH ×6 (01:15→21:38)
[2022-01-09] MEDS ORDERED: PIPERACILLIN/TAZOB 3.375 GM 3.375 GM in DEXTROSE 5%-WATER - 50 ML IVPB SCH (11:15)
[2022-01-09] MEDS ORDERED: DEXTROSE 5%-WATER - 50 ML IVPB ONE ×2 (11:28→17:55)
[2022-01-09] MEDS ORDERED: PIPERACILLIN/TAZOBACTAM 3.375 GM VIAL IVPB ONE ×2 (11:28→17:55)
[2022-01-09] MEDS: CYANOCOBALAMIN 1,000 MCG TABLET (FP) PO SCH (11:30)
[2022-01-09] MEDS: PANTOPRAZOLE 40 MG TABLET PO SCH (11:31)
[2022-01-09] MEDS: LISINOPRIL 20 MG TABLET PO SCH (11:31)
[2022-01-09] MEDS: CHOLECALCIFEROL (VIT D3) 1,000 UNIT (25 MCG) TABLET PO SCH (11:31)
[2022-01-09] MEDS: CEFTRIAXONE 1 GM in DEXTROSE 5%-WATER - 50 ML IVPB SCH (11:49)
[2022-01-09] MEDS: PIPERACILLIN/TAZOB 3.375 GM 3.375 GM in DEXTROSE 5%-WATER - 50 ML IVPB SCH (17:59)
[2022-01-09] MEDS: FLUCONAZOLE 100 MG TABLET (UD) PO SCH (17:59)
[2022-01-09 18:55] LABS: BF WBC & OTHER NUCLEATED CELLS 1471 /mm3
[2022-01-09 19:02] LABS: BODY FLUID MESOTHELIAL 2 %; BODY FLUID MONOCYTE 8 %
[2022-01-09] MEDS: ATORVASTATIN CA 10 MG TABLET (FP) PO SCH (21:39)
[2022-01-10] MEDS ORDERED: PIPERACILLIN/TAZOBACTAM 3.375 GM VIAL IVPB ONE ×3 (01:55→16:24)
[2022-01-10] MEDS ORDERED: DEXTROSE 5%-WATER - 50 ML IVPB ONE ×3 (01:55→16:25)
[2022-01-10] MEDS: PIPERACILLIN/TAZOB 3.375 GM 3.375 GM in DEXTROSE 5%-WATER - 50 ML IVPB SCH ×3 (02:01→17:59)
[2022-01-10] MEDS: NYSTATIN 500,000 UNITS/5 ML SUSPENSION PO SCH ×6 (02:01→21:15)
[2022-01-10] MEDS: HEPARIN NA (PORCINE) 5,000 UNITS/ML 1ML VIAL SQ SCH ×3 (05:04→21:15)
[2022-01-10] MEDS: CHOLECALCIFEROL (VIT D3) 1,000 UNIT (25 MCG) TABLET PO SCH (09:36)
[2022-01-10] MEDS: PANTOPRAZOLE 40 MG TABLET PO SCH (09:36)
[2022-01-10] MEDS: LISINOPRIL 20 MG TABLET PO SCH (09:36)
[2022-01-10] MEDS: CYANOCOBALAMIN 1,000 MCG TABLET (FP) PO SCH (09:36)
[2022-01-10 09:45] LABS: BASO % 0.8 % (0-2.0); EOS % 1.6 % (0-4.5); HEMATOCRIT 39.6 % (35.4-49); HEMOGLOBIN 13.4 GM/dL (11.7-16.9); LYMPH % 19.3 % (8-40); MCH 32.6 pg (25.7-33.7); MCHC 33.8 g/dl (32.0-35.9); MEAN CELL VOLUME 96.4 fl (80-96); MEAN PLT VOLUME 11.2 fl (7.5-11.1); MONO % 6.7 % (3.8-10.2); NEUT % 71.6 % (42.8-82.8); PLATELET COUNT 193 10^3/uL (134-434); RBC 4.11 M/mm3 (4.00-5.60); RDW 13.3 % (11.9-15.9); WHITE BLOOD COUNT 5.7 K/mm3 (4.0-10.0)
[2022-01-10 10:06] LABS: CALCIUM 8.3 mg/dL (8.5-10.1)
[2022-01-10 10:07] LABS: BLOOD UREA NITROGEN 10.5 mg/dL (7-18)
[2022-01-10 10:10] LABS: CREATININE 0.8 mg/dL (0.55-1.3)
[2022-01-10] MEDS: FLUCONAZOLE 100 MG TABLET (UD) PO SCH (10:47)
[2022-01-10] MEDS ORDERED: PIPERACILLIN/TAZOB 3.375 GM 3.375 GM in DEXTROSE 5%-WATER - 50 ML IVPB SCH (18:00)
[2022-01-10] MEDS: ATORVASTATIN CA 10 MG TABLET (FP) PO SCH (21:14)
[2022-01-11] MEDS ORDERED: PIPERACILLIN/TAZOBACTAM 3.375 GM VIAL IVPB ONE ×3 (01:34→18:09)
[2022-01-11] MEDS ORDERED: DEXTROSE 5%-WATER - 50 ML IVPB ONE ×3 (01:34→18:10)
[2022-01-11] MEDS: PIPERACILLIN/TAZOB 3.375 GM 3.375 GM in DEXTROSE 5%-WATER - 50 ML IVPB SCH ×3 (01:47→18:18)
[2022-01-11] MEDS: NYSTATIN 500,000 UNITS/5 ML SUSPENSION PO SCH ×6 (01:47→21:17)
[2022-01-11] MEDS: HEPARIN NA (PORCINE) 5,000 UNITS/ML 1ML VIAL SQ SCH ×3 (06:03→21:13)
[2022-01-11] MEDS: PANTOPRAZOLE 40 MG TABLET PO SCH (09:35)
[2022-01-11] MEDS: CHOLECALCIFEROL (VIT D3) 1,000 UNIT (25 MCG) TABLET PO SCH (09:36)
[2022-01-11] MEDS: FLUCONAZOLE 100 MG TABLET (UD) PO SCH (09:36)
[2022-01-11] MEDS: CYANOCOBALAMIN 1,000 MCG TABLET (FP) PO SCH (09:36)
[2022-01-11] MEDS: LISINOPRIL 20 MG TABLET PO SCH (09:36)
[2022-01-11 16:08] LABS: BODY FLUID ALBUMIN 3.1 g/dL (Not Estab.)
[2022-01-11] MEDS: ATORVASTATIN CA 10 MG TABLET (FP) PO SCH (21:13)
[2022-01-12] MEDS ORDERED: PIPERACILLIN/TAZOBACTAM 3.375 GM VIAL IVPB ONE ×3 (01:29→17:41)
[2022-01-12] MEDS ORDERED: DEXTROSE 5%-WATER - 50 ML IVPB ONE ×3 (01:30→17:41)
[2022-01-12] MEDS: PIPERACILLIN/TAZOB 3.375 GM 3.375 GM in DEXTROSE 5%-WATER - 50 ML IVPB SCH ×3 (01:49→18:03)
[2022-01-12] MEDS: NYSTATIN 500,000 UNITS/5 ML SUSPENSION PO SCH ×6 (04:08→21:30)
[2022-01-12] MEDS: HEPARIN NA (PORCINE) 5,000 UNITS/ML 1ML VIAL SQ SCH ×3 (05:28→21:30)
[2022-01-12 08:42] LABS: TOT PROT 6.6 g/dl (6.4-8.2)
[2022-01-12] MEDS: CYANOCOBALAMIN 1,000 MCG TABLET (FP) PO SCH (10:39)
[2022-01-12] MEDS: CHOLECALCIFEROL (VIT D3) 1,000 UNIT (25 MCG) TABLET PO SCH (10:39)
[2022-01-12] MEDS: LISINOPRIL 20 MG TABLET PO SCH (10:39)
[2022-01-12] MEDS: PANTOPRAZOLE 40 MG TABLET PO SCH (10:39)
[2022-01-12] MEDS: FLUCONAZOLE 100 MG TABLET (UD) PO SCH (10:47)
[2022-01-12] MEDS ORDERED: ACETAMINOPHEN 1000 MG/100 ML BAG IVPB ONE ×2 (19:00→19:23)
[2022-01-12] MEDS: ATORVASTATIN CA 10 MG TABLET (FP) PO SCH (21:30)
[2022-01-13] MEDS ORDERED: DEXTROSE 5%-WATER - 50 ML IVPB ONE ×2 (01:36→09:51)
[2022-01-13] MEDS ORDERED: PIPERACILLIN/TAZOBACTAM 3.375 GM VIAL IVPB ONE ×2 (01:36→09:51)
[2022-01-13] MEDS: NYSTATIN 500,000 UNITS/5 ML SUSPENSION PO SCH ×3 (02:04→10:00)
[2022-01-13] MEDS: PIPERACILLIN/TAZOB 3.375 GM 3.375 GM in DEXTROSE 5%-WATER - 50 ML IVPB SCH ×2 (02:04→10:01)
[2022-01-13] MEDS: HEPARIN NA (PORCINE) 5,000 UNITS/ML 1ML VIAL SQ SCH ×3 (05:15→21:41)
[2022-01-13] MEDS: ACETAMINOPHEN 325 MG TABLET (FP) PO PRN ×3 (05:15→21:44)
[2022-01-13 07:37] LABS: BF WBC & OTHER NUCLEATED CELLS 761 /mm3
[2022-01-13 09:40] LABS: BODY FLUID MONOCYTE 3 %
[2022-01-13] MEDS: CYANOCOBALAMIN 1,000 MCG TABLET (FP) PO SCH (10:01)
[2022-01-13] MEDS: PANTOPRAZOLE 40 MG TABLET PO SCH (10:01)
[2022-01-13] MEDS: FLUCONAZOLE 100 MG TABLET (UD) PO SCH (10:01)
[2022-01-13] MEDS: LISINOPRIL 20 MG TABLET PO SCH (10:01)
[2022-01-13] MEDS: CHOLECALCIFEROL (VIT D3) 1,000 UNIT (25 MCG) TABLET PO SCH (10:02)
[2022-01-13 10:36] LABS: EOS % 1.6 % (0-4.5); HEMOGLOBIN 13.2 GM/dL (11.7-16.9); LYMPH % 20.7 % (8-40); MCH 31.5 pg (25.7-33.7); MEAN CELL VOLUME 95.3 fl (80-96); MEAN PLT VOLUME 10.8 fl (7.5-11.1); MONO % 6.6 % (3.8-10.2); NEUT % 70.1 % (42.8-82.8); PLATELET COUNT 189 10^3/uL (134-434); RBC 4.19 M/mm3 (4.00-5.60); RDW 13.2 % (11.9-15.9); WHITE BLOOD COUNT 6.3 K/mm3 (4.0-10.0)
[2022-01-13 10:59] LABS: CALCIUM 8.8 mg/dL (8.5-10.1)
[2022-01-13 11:00] LABS: ALBUMIN 2.8 g/dl (3.4-5.0); BLOOD UREA NITROGEN 14.5 mg/dL (7-18); MAGNESIUM 2.4 mg/dL (1.8-2.4)
[2022-01-13 11:03] LABS: CREATININE 0.7 mg/dL (0.55-1.3); PHOSPHOROUS 3.2 mg/dL (2.5-4.9)
[2022-01-13 11:04] LABS: TOT PROT 6.8 g/dl (6.4-8.2)
[2022-01-13 11:05] LABS: BILIRUBIN,TOTAL 0.4 mg/dL (0.2-1)
[2022-01-13] MEDS: ATORVASTATIN CA 10 MG TABLET (FP) PO SCH (21:41)
[2022-01-14] MEDS: HEPARIN NA (PORCINE) 5,000 UNITS/ML 1ML VIAL SQ SCH ×3 (06:36→21:12)
[2022-01-14] MEDS: LISINOPRIL 20 MG TABLET PO SCH (09:28)
[2022-01-14] MEDS: CHOLECALCIFEROL (VIT D3) 1,000 UNIT (25 MCG) TABLET PO SCH (09:28)
[2022-01-14] MEDS: CYANOCOBALAMIN 1,000 MCG TABLET (FP) PO SCH (09:28)
[2022-01-14] MEDS: PANTOPRAZOLE 40 MG TABLET PO SCH (09:28)
[2022-01-14] MEDS: ATORVASTATIN CA 10 MG TABLET (FP) PO SCH (21:12)
[2022-01-15] MEDS: HEPARIN NA (PORCINE) 5,000 UNITS/ML 1ML VIAL SQ SCH ×3 (05:27→21:50)
[2022-01-15] MEDS: PANTOPRAZOLE 40 MG TABLET PO SCH (09:57)
[2022-01-15] MEDS: LISINOPRIL 20 MG TABLET PO SCH (09:57)
[2022-01-15] MEDS: CHOLECALCIFEROL (VIT D3) 1,000 UNIT (25 MCG) TABLET PO SCH (09:57)
[2022-01-15] MEDS: CYANOCOBALAMIN 1,000 MCG TABLET (FP) PO SCH (09:57)
[2022-01-15 12:05] LABS: BASO % 0.9 % (0-2.0); EOS % 1.2 % (0-4.5); HEMATOCRIT 36.4 % (35.4-49); HEMOGLOBIN 12.4 GM/dL (11.7-16.9); LYMPH % 23.5 % (8-40); MCH 31.9 pg (25.7-33.7); MEAN CELL VOLUME 93.9 fl (80-96); MEAN PLT VOLUME 10.7 fl (7.5-11.1); MONO % 8.2 % (3.8-10.2); NEUT % 66.2 % (42.8-82.8); PLATELET COUNT 206 10^3/uL (134-434); RBC 3.88 M/mm3 (4.00-5.60); RDW 13.5 % (11.9-15.9); WHITE BLOOD COUNT 6.6 K/mm3 (4.0-10.0)
[2022-01-15 12:25] LABS: ALBUMIN 2.7 g/dl (3.4-5.0); CALCIUM 8.6 mg/dL (8.5-10.1)
[2022-01-15 12:26] LABS: BLOOD UREA NITROGEN 14.5 mg/dL (7-18); MAGNESIUM 2.2 mg/dL (1.8-2.4)
[2022-01-15 12:28] LABS: CREATININE 0.6 mg/dL (0.55-1.3)
[2022-01-15 12:30] LABS: BILIRUBIN,TOTAL 0.4 mg/dL (0.2-1); TOT PROT 6.7 g/dl (6.4-8.2)
[2022-01-15] MEDS: ATORVASTATIN CA 10 MG TABLET (FP) PO SCH (21:51)
[2022-01-15] MEDS: ACETAMINOPHEN 325 MG TABLET (FP) PO PRN (21:51)
[2022-01-16] MEDS: HEPARIN NA (PORCINE) 5,000 UNITS/ML 1ML VIAL SQ SCH ×3 (06:10→22:21)
[2022-01-16] MEDS: CHOLECALCIFEROL (VIT D3) 1,000 UNIT (25 MCG) TABLET PO SCH (09:26)
[2022-01-16] MEDS: CYANOCOBALAMIN 1,000 MCG TABLET (FP) PO SCH (09:26)
[2022-01-16] MEDS: PANTOPRAZOLE 40 MG TABLET PO SCH (09:26)
[2022-01-16] MEDS: LISINOPRIL 20 MG TABLET PO SCH (09:26)
[2022-01-16 09:47] LABS: BASO % 0.9 % (0-2.0); EOS % 1.8 % (0-4.5); HEMATOCRIT 38.9 % (35.4-49); HEMOGLOBIN 12.9 GM/dL (11.7-16.9); LYMPH % 23.3 % (8-40); MCH 31.7 pg (25.7-33.7); MCHC 33.2 g/dl (32.0-35.9); MEAN CELL VOLUME 95.6 fl (80-96); MEAN PLT VOLUME 10.3 fl (7.5-11.1); MONO % 6.4 % (3.8-10.2); NEUT % 67.6 % (42.8-82.8); PLATELET COUNT 216 10^3/uL (134-434); RBC 4.07 M/mm3 (4.00-5.60); RDW 13.4 % (11.9-15.9); WHITE BLOOD COUNT 6.2 K/mm3 (4.0-10.0)
[2022-01-16 10:23] LABS: ALBUMIN 3.1 g/dl (3.4-5.0); CALCIUM 8.7 mg/dL (8.5-10.1); MAGNESIUM 2.4 mg/dL (1.8-2.4)
[2022-01-16 10:26] LABS: CREATININE 0.7 mg/dL (0.55-1.3)
[2022-01-16 10:28] LABS: BILIRUBIN,TOTAL 0.5 mg/dL (0.2-1); TOT PROT 7.1 g/dl (6.4-8.2)
[2022-01-16] MEDS: ACETAMINOPHEN 325 MG TABLET (FP) PO PRN (14:28)
[2022-01-16 16:38] VITALS: BMI 22.8
[2022-01-16] MEDS: FUROSEMIDE 40 MG/4 ML INJECTABLE VIAL IVPUSH ONE ×2 (18:00→18:33)
[2022-01-16] MEDS: ATORVASTATIN CA 10 MG TABLET (FP) PO SCH (22:21)
[2022-01-17] MEDS: HEPARIN NA (PORCINE) 5,000 UNITS/ML 1ML VIAL SQ SCH ×2 (05:17→16:29)
[2022-01-17] MEDS: PANTOPRAZOLE 40 MG TABLET PO SCH (09:16)
[2022-01-17] MEDS: CHOLECALCIFEROL (VIT D3) 1,000 UNIT (25 MCG) TABLET PO SCH (09:16)
[2022-01-17] MEDS: CYANOCOBALAMIN 1,000 MCG TABLET (FP) PO SCH (09:16)
[2022-01-17] MEDS: LISINOPRIL 20 MG TABLET PO SCH (09:17)
[2022-01-17] MEDS ORDERED: FUROSEMIDE 20 MG TABLET (FP) PO SCH (10:00)
[2022-01-17 15:14] VITALS: PULSE 71; TEMP 98.3
[2022-01-17 16:04] VITALS: BP 95/53
[2022-01-17 18:07] LABS: BODY FLUID ALBUMIN 2.4 g/dL (Not Estab.)
== END 2022-01-17 18:04 | disposition home health service (06) | DRG 187 ==
LOC: FER 15:53 → FM/S 21:55 → UNDOADMIN 22:05 → J8W 01-06 17:24
PROVIDERS: ADMIT Internal Medicine; ATTEND Internal Medicine
PROC: 0W993ZZ Drainage of Right Pleural Cavity, Percutaneous Approach (ICD-10-PCS; principal; 2022-01-09)
PROC: 0W9930Z Drainage of Right Pleural Cavity with Drainage Device, Percutaneous Approach (ICD-10-PCS; 2022-01-12)
DX: J90 Pleural effusion, not elsewhere classified (principal); I50.32 Chronic diastolic (congestive) heart failure; J98.11 Atelectasis; I45.2 Bifascicular block; B37.0 Candidal stomatitis; E87.1 Hypo-osmolality and hyponatremia; K57.90 Diverticulosis of intestine, part unspecified, without perforation or abscess without bleeding; I11.0 Hypertensive heart disease with heart failure; E78.5 Hyperlipidemia, unspecified; I25.10 Atherosclerotic heart disease of native coronary artery without angina pectoris; I35.1 Nonrheumatic aortic (valve) insufficiency
CPT/HCPCS: 32557; 36415; 71045-TC-FY; 71046-TC-FY; 71250-TC; 74176-TC; 74177-TC; 76942; 80048; 80053; 80061; 81003; 81015; 82042; 82150; 82465; 82803; 82945; 83036; 83615; 83690; 83735; 83880; 83986; 84100; 84155; 84157; 84443; 84478; 84484; 85025; 85610; 85730; 87070; 87075; 87102; 87116; 87205; 87206; 87210; 88108; 88305-TC; 93005; 93306-TC; 93970-TC; 94010; 94761; 97116-GP; 97161-GP; 99285-25; C9803-CS; J1644; Q9967; U0003; U0005